=== PATIENT | female | born 1940 | race Caucasian/White ===

== ENCOUNTER 2018-02-22 07:53 | Emergency (ER) | payer MEDICARE, BC ==
[2018-02-22 07:58] VITALS: BP 132/83
--- NOTE | 2018-02-22 08:25 | EDM.PDOC ---
ED HPI GENERAL MEDICAL PROBLEM - General Chief Complaint: Respiratory Problem Stated Complaint: bronchitis, cough Time Seen by Provider: 02/22/18 08:20 Source of Information: Reports: Patient, Old Records ([facility] chart/EMR) History Limitations: Reports: No Limitations - History of Present Illness INITIAL COMMENTS - FREE TEXT/NARRATIVE: The patient was brought to the emergency room via private automobile by her for evaluation of progressive nonproductive cough with symptoms starting about one week ago. Note that she has had some intermittent fever and chills, nonspecific generalized myalgias, and progressive nonspecific generalized weakness, however has not measured her temperature. Her symptoms have been refractory to recent OTC cough medications and Mucinex DM. She denies any known exposure to infection with patient taking her regular Aleve for her arthritis earlier this morning. She has not been using any inhalers, etc. to this point with known history of COPD. She could not get an appointment with her regular provider for another couple of days. The patient denies any chest pain/pressure, heart flutter, dizziness, orthostasis, orthopnea, diaphoresis, paresthesias, recent decreased exercise tolerance, or any other anginal-type symptoms. No recent history of abdominal pain, heartburn, nausea, diarrhea, melena, gross hematochezia, or any food intolerance, including fatty foods, etc.. He denies any gross hematuria, colic, etc.. No current pain or discomfort other than 8/10 myalgias as above. Onset: Gradual Duration: Week(s): (As above), Constant, Getting Worse Location: Reports: Generalized Quality: Reports: Same as Previous Episode Severity: Moderate Improves with: Reports: None Worsens with: Reports: None Context: Reports: Other (As above). Denies: Sick Contact Associated Symptoms: Reports: Cough, Fever/Chills, Weakness. Denies: Confusion , Chest Pain, cough w sputum, Diaphoresis, Headaches, Loss of Appetite, Malaise , Nausea/Vomiting, Seizure, Shortness of Breath, Syncope Treatments AUTO BODY DETAILER: Reports: NSAIDS, Other Medication(s) Generalized Pain Score (Numeric/FACES): 8 - Related Data Allergies Allergy/AdvReac Type Severity Reaction Status Date / Time ciprofloxacin [From Cipro] Allergy Cannot Verified 02/22/18 07:58 Remember ciprofloxacin HCl Allergy Cannot Verified 02/22/18 07:58 [From Cipro] Remember nitrofurantoin Allergy Cannot Verified 02/22/18 07:58 [From Macrobid] Remember nitrofurantoin Allergy Cannot Verified 02/22/18 07:58 macrocrystalline Remember [From Macrobid] Sulfa (Sulfonamide Allergy Cannot Verified 02/22/18 07:58 Antibiotics) Remember Home Meds: Home Meds Citalopram [Celexa] 10 mg PO QAM 04/18/15 [History] LORazepam 0.5 mg PO BEDTIME PRN 04/18/15 [History] Metoprolol Succinate [Toprol XL] 50 mg PO QAM 04/18/15 [History] Triamcinolone Acetonide [Triamcinolone Acetonide 0.1% Crm] 15 gm TOP BID PRN [History] Losartan Potassium 100 mg PO QAM 10/04/15 [History] Cetirizine [ZyrTEC] 10 mg PO DAILY 02/13/16 [History] Aspirin [Ecotrin] 1 tab PO DAILY 07/18/16 [History] Albuterol/Ipratropium [DuoNeb 3.0-0.5 MG/3 ML] 3 ml NEB QID #60 neb 02/22/18 [Rx ] Amoxicillin/Potassium Clav [Augmentin 875-125 Tablet] 1 each PO BIDMEALS #20 tablet 02/22/18 [Rx] Furosemide [Lasix] 20 mg PO DAILY #14 tab 02/22/18 [Rx] Naproxen Sodium [Aleve] 220 mg PO DAILY 02/22/18 [History] Potassium Chloride 20 meq PO DAILY #14 tablet.er 02/22/18 [Rx] guaiFENesin/Dextromethorphan [Mucinex Dm ER 1,200-60 mg Tab] 1 each PO BID #20 tab.er.12h 02/22/18 [Rx] Past Medical History HEENT History: Reports: Allergic Rhinitis, Cataract, Impaired Vision, Sinusitis , Other (See Below). Denies: Glaucoma, Hard of Hearing, Macular Degeneration, Retinal Detachment Other HEENT History: Glasses, bilateral cataract surgery as below Cardiovascular History: Reports: Afib, Arrhythmia, CAD, Hypertension, IN, PTCA, Stents, Syncope, Other (See Below). Denies: Aneurysm, Blood Clots/VTE/DVT, Heart Failure, Heart Murmur, High Cholesterol, PVD Other Cardiovascular History: History of IN in 2007 which did require one stent as below. Cardiac ablation for atrial fibrillation at the [facility] on 02/05/16 , cardiomegaly, pectus excavatum, Respiratory History: Reports: Bronchitis, Recurrent, COPD, Intubation, Previous , Pneumonia, Recurrent, Pulmonary Fibrosis. Denies: Asthma, Intubation, Difficult, PE, Pneumothorax, Sleep Apnea, TB Gastrointestinal History: Reports: Cholelithiasis, Colon Polyp, Diverticulosis, Other (See Below). Denies: Celiac Disease, Chronic Constipation, Chronic Diarrhea, Fecal Incontinence, Gastritis, GERD, GI Bleed, Hepatitis, Hiatal Hernia, Inflammatory Bowel Disease, Irritable Bowel Syndrome, Jaundice, Pancreatitis, PUD Other Gastrointestinal History: Colonic polyps of unknown type. Diffuse diverticulosismoderate. Genitourinary History: Reports: Renal Calculus, UTI, Recurrent, Other (See Below ). Denies: Acute Renal Failure, Chronic Renal Insuffiency, Retention, Urinary, STD, Urinary Incontinence Other Genitourinary History: Chronic nonsymptomatic incidental right-sided urolithiasis and benign bilateral renal cysts by CT scan SURVEILLANCE SYSTEM MONITOR History: Reports: Fibroids, . Denies: Dysfunctional Uterine Bleeding, Endometriosis : 5 Para: 5 LMP (Approximate): Other (See Below) Other SURVEILLANCE SYSTEM MONITOR History: Menopause at age 48. Full term without complications during pregnancies or deliveries Musculoskeletal History: Reports: Arthritis, Back Pain, Chronic, Neck Pain, Chronic, Osteoarthritis, Osteoporosis, Other (See Below). Denies: Amputation, Fracture, Gout, RA, SLE Other Musculoskeletal History: Scoliosis Neurological History: Denies: Cerebral Aneurysms, Concussion, CVA, Headaches, Chronic, Head Trauma, Migraines, MS, Parkinson's, Seizure, TIA Psychiatric History: Reports: Anxiety, Depression. Denies: Abuse, Victim of, ADD, ADHD, Addiction, Psych Hospitalization(s), Psychosis, PTSD, Suicide Attempt , Suicidal Ideation Endocrine/Metabolic History: Reports: Osteopenia, Osteoporosis, Other (See Below ). Denies: Diabetes, Gestational, Diabetes, Type I, Diabetes, Type II, Diabetes Mellitus, Type 3c, Hypothyroidism, IDDM Other Endocrine/Metabolic History: Hyponatremia Hematologic History: Reports: None. Denies: Anemia, B12 Deficiency, Blood Transfusion(s), Iron Deficiency Immunologic History: Reports: None. Denies: AIDS, HIV, SLE Oncologic (Cancer) History: Reports: Malignant Melanoma, Other (See Below). Denies: Basal Cell Carcinoma, Breast, Cervix, Hodgkin's Lymphoma, Leukemia, Lymphoma, Non-Hodgkin's Lymphoma, Ovarian, Squamous Cell Carcinoma, Uterine Other Oncologic History: melanoma-left face in about 2002. Dermatologic History: Reports: Melanoma, Other (See Below). Denies: Eczema, Psoriasis Other Dermatologic History: Melanoma as above - Infectious Disease History Infectious Disease History: Reports: Measles. Denies: C-Difficile, Chicken Pox , Meningitis, Mononucleosis, MRSA, Mumps, Pertussis (Whooping Cough), Rheumatic Fever, Rubella, Scarlet Fever, Shingles, VRE - Past Surgical History Head Surgeries/Procedures: Reports: None HEENT Surgical History: Reports: Cataract Surgery, Other (See Below). Denies: Adenoidectomy, Eye Surgery, Laser Surgery, LASIK, Myringotomy w Tube(s), Naso- Sinus Surgery, Oral Surgery, Tonsillectomy Other HEENT Surgeries/Procedures: Bilateral cataract surgery in about 2014. Cardiovascular Surgical History: Reports: Cardiac Ablation, Carotid Stents, Other (See Below). Denies: Coronary Artery Bypass, Varicose Other Cardiovascular Surgeries/Procedures: Cardiac ablation on 02/05/16. PTCA/ stent 1 in 2006 which patient denies at this time? Respiratory Surgical History: Reports: None. Denies: Thoracentesis GI Surgical History: Reports: Cholecystectomy, Colonoscopy, EGD, Polypectomy, Other (See Below). Denies: Appendectomy, Hernia, Inguinal, Hernia Repair/Other Other GI Surgeries/Procedures: Laparoscopic Cholecystectomy at about age 58. Colonoscopy and EGD in about 2016 with possible polypectomy from the colon with previous colonoscopy on 02/10/07. Female Surgical History: Reports: None. Denies: Breast Biopsy, Section, Cystectomy, D&C, Hysterectomy, Salpingo-Oophorectomy, Tubal Ligation Endocrine Surgical History: Reports: None. Denies: Thyroid Biopsy Musculoskeletal Surgical History: Reports: Joint Replacement, Knee Replacement, Other (See Below). Denies: Arthroscopic Knee, Arthroscopic Procedure, Carpal Tunnel, Ganglion Cyst, ORIF, Shoulder Replacement, Shoulder Surgery Other Musculoskeletal Surgeries/Procedures:: Right total knee arthroplasty in about 2010. Right foot digit #1 joint replacement in about 2008. Oncologic Surgical History: Reports: None Dermatological Surgical History: Reports: Other (See Below) Other Dermatological Surgeries/Procedures: Excision of melanoma from the left facial region about 2002. - Past Imaging History Past Imaging History: Reports: Cardiac Echo (01/31/11 with ejection fraction of 63 %), Carotid US (Negative on 02/07/11), CAT Scan (CTA of the chest on 10/05/[address] scans of the abdomen and pelvis last on 04/19/15.), DEXA Scan (06/04/08), MRI (Pelvis on 04/15/08), PFT (03/27/11), Stress Testing (Low level cardiac stress test on 10/06/06.), Ultrasound (Abdominal ultrasound on . Pelvic ultrasound on 03/24/11.) - History Comment History Comment: hypokalemia and low sodium noted in past Social & Family History - Tobacco Use Smoking Status *Q: Former Smoker Tobacco Use Within Last Twelve Months: No Years of Tobacco use: 26 Packs/Tins Daily: 0.2 Used Tobacco, but Quit: Yes Month/Year Tobacco Last Used: Smoked about 1 pack per week and quit at age 43 Smoking Cessation Information Provided To Patient: No Second Hand Smoke Education Provided: No - Caffeine Use Caffeine Use: Reports: Coffee (4 cups per day). Denies: Energy Drinks, Soda, Tea - Alcohol Use Alcohol Use History: No Days Per Week of Alcohol Use: 0 Number of Drinks Per Day: 0 Number of Drinks Per Day Comment: No previous DWIs, problems with alcohol abuse , etc. 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 ED EXAM, GENERAL - Physical Exam Exam: See Below Exam Limited By: No Limitations General Appearance: Alert, WD/WN, No Apparent Distress Eye Exam: Bilateral Eye: EOMI, Normal Inspection (No nystagmus. Patient wearing glasses), PERRL Ears: Normal External Exam, Normal Canal, Hearing Grossly Normal, Normal TMs Nose: Normal Inspection, Normal Mucosa, No Blood Throat/Mouth: Normal Inspection, Normal Lips, Normal Teeth, Normal Gums, Normal Oropharynx, Normal Voice, No Airway Compromise. No: Dysphagia, Perioral Cyanosis Head: Atraumatic, Normocephalic. No: Facial Swelling, Facial Tenderness, Sinus Tenderness Neck: Normal Inspection, Supple, Non-Tender, Full Range of Motion. No: Carotid Bruit, Lymphadenopathy (L), Lymphadenopathy (R), Thyromegaly Respiratory/Chest: No Respiratory Distress, No Accessory Muscle Use, Chest Non- Tender, Rales (Mild bilateral basilar). No: Rhonchi, Wheezing, Pleural Rub, Retractions Cardiovascular: Normal Peripheral Pulses, Regular Rate, Rhythm, No Edema, No Gallop, No JVD, No Murmur, No Rub. No: Gallop/S3, Gallop/S4, Friction Rub Peripheral Pulses: 2+: Radial (L), Radial (R), Dorsalis Pedis (L), Dorsalis Pedis (R) GI/Abdominal: Normal Bowel Sounds, Soft, Non-Tender, No Organomegaly, No Distention, No Abnormal Bruit, No Mass, Pelvis Stable, Other (Obese). No: Guarding (Female) Exam: Deferred Rectal (Female) Exam: Deferred Back Exam: Normal Inspection, Full Range of Motion, Other (Mild scoliosis). No : CVA Tenderness (L), CVA Tenderness (R), Muscle Spasm Extremities: Normal Inspection, Normal Range of Motion, Non-Tender, No Pedal Edema, Normal Capillary Refill. No: Link's Sign Neurological: Alert, Oriented, CN II-XII Intact, Normal Cognition, Normal Gait, Normal Reflexes (Negative Babinski's), No Motor/Sensory Deficits Psychiatric: Normal Affect, Normal Mood Skin Exam: Warm, Dry, Intact, Normal Color, No Rash Lymphatic: No Adenopathy Course - Vital Signs Last Recorded V/S: Last Vital Signs Temp 36.8 C 02/22/18 07:54 Pulse 106 H 02/22/18 07:54 Resp 20 02/22/18 07:54 BP 132/83 02/22/18 07:54 Pulse Ox 94 L 02/22/18 07:54 Vital Signs - 24 hr 02/22/18 07:54 Temperature [ 36.8 C Oral] Pulse, 106 H Peripheral [ Left Pulse Oximetry] Respiratory 20 Rate Blood Pressure 132/83 [Left Upper Arm ] O2 Sat by Pulse 94 L Oximetry - Orders/Labs/Meds Orders: Active Orders 24 hr Category Date Time Status Communication Order [RC] ROUTINE Care 02/22/18 08:26 Active Peripheral IV Care [RC] . DIRECTED Care 02/22/18 08:27 Active Pulse Oximetry [RC] CONTINUOUS Care 02/22/18 08:26 Active Up With Assistance [RC] ASDIRECTED Care 02/22/18 08:26 Active Nothing Per Oral Diet [DIET] Diet 02/22/18 Breakfast Active Chest 2V [CR] Stat Exams 02/22/18 08:26 Taken CULTURE BLOOD [BC] Stat Lab 02/22/18 08:35 Received CULTURE BLOOD [BC] Stat Lab 02/22/18 09:20 Received CULTURE SPUTUM + SMEAR [RM] Urgent Lab 02/22/18 08:26 Ordered INFLUENZA A+B AG SCREEN [RM] Stat Lab 02/22/18 08:35 Ordered Sodium Chloride 0.9% [Saline Flush] Med 02/22/18 08:26 Active 10 ml FLUSH ASDIRECTED PRN Blood Culture x2 Reflex Set [OM.PC] Stat Oth 02/22/18 08:26 Ordered Obtain Past Medical Record [OM.PC] Stat Oth 02/22/18 08:26 Active Peripheral IV Insertion Adult [OM.PC] Stat Oth 02/22/18 08:26 Ordered Resuscitation Status Routine Resus Stat 02/22/18 08:26 Ordered Medication Orders Sodium Chloride (Saline Flush) 10 ml FLUSH ASDIRECTED PRN PRN Reason: Keep Vein Open Labs: Laboratory Tests 02/22/18 02/22/18 02/22/18 Range/Units 08:26 08:35 08:35 WBC 10.5 H (4.0-10.2) K/uL RBC 4.63 (3.77-5.09) M/uL Hgb 14.0 (11.7-15.5) g/dL Hct 40.9 (34.0-46.0) % MCV 88.3 (84.0-98.0) fL MCH 30.2 (28.2-33.3) pg MCHC 34.2 (31.7-36.0) g/dL RDW 12.1 (11.2-14.1) % Plt Count 175 (150-350) K/uL Neut % (Auto) 79.2 (45.0-80.0) % Lymph % (Auto) 9.7 L (10.0-50.0) % [place] % (Auto) 7.1 (2.0-14.0) % Eos % (Auto) 3.5 (0.0-5.0) % Baso % (Auto) 0.5 (0.0-2.0) % Neut # (Auto) 8.29 H (1.40-7.00) K/uL Lymph # (Auto) 1.02 (0.50-3.50) K/uL [place] # (Auto) 0.74 (0.00-1.00) K/uL Eos # (Auto) 0.37 (0.00-0.50) K/uL Baso # (Auto) 0.05 (0.00-0.20) K/uL Sodium 132 L (136-145) mmol/L Potassium 3.7 (3.5-5.1) mmol/L Chloride 94 L (98-107) mmol/L Carbon Dioxide 29.6 (21.0-32.0) mmol/L BUN 12 (7-18) mg/dL Creatinine 0.75 (0.51-1.17) mg/dL Est Cr Clr Drug Dosing 59.15 mL/min Estimated GFR (MDRD) > 60 mL/min Glucose 112 H (74-106) mg/dL Lactic Acid 0.6 (0.4-2.0) mmol/L Calcium 8.6 (8.5-10.1) mg/dL Magnesium 1.9 (1.8-2.4) mg/dL Total Bilirubin 0.8 (0.2-1.0) mg/dL AST 19 (15-37) U/L ALT 20 (12-78) U/L Alkaline Phosphatase 103 (46-116) IU/L Creatine Kinase 63 (26-308) U/L Creatine Kinase Index 1.4 (0.0-2.5) % CK-MB (CK-2) 0.90 (0.00-3.60) ng/mL Troponin I 0.000 (0.000-0.056) ng/mL NT-Pro-B Natriuret Pep 699 H (0-125) pg/mL Total Protein 7.4 (6.4-8.2) g/dL Albumin 3.2 L (3.4-5.0) g/dL TSH, Ultra Sensitive 2.295 (0.358-3.740) mIU/mL Blood cultures 2 were collected. Microbiology 02/22/18 08:35 Influenza Type A Antigen Screen - Final Nasal, Unspecified NEGATIVE INFLUENZA A VIRUS AG Influenza Type B Antigen Screen - Final NEGATIVE INFLUENZA B VIRUS AG Meds: Medications Generic Name Dose Route Start Last Admin Trade Name Freq PRN Reason Stop Dose Admin Sodium Chloride 10 ml 02/22/18 08:26 Saline Flush FLUSH ASDIRECTED PRN Keep Vein Open Discontinued Medications Generic Name Dose Route Start Last Admin Trade Name Freq PRN Reason Stop Dose Admin Albuterol/Ipratropium 3 ml 02/22/18 08:26 02/22/18 08:31 Duoneb 3.0-0.5 Mg/3 Ml NEB 02/22/18 08:27 3 ml ONETIME ONE Administration Budesonide 0.5 mg 02/22/18 08:26 02/22/18 08:33 Pulmicort NEB 02/22/18 08:27 0.5 mg ONETIME ONE Administration Ceftriaxone Sodium 1 gm 02/22/18 09:32 02/22/18 09:39 Rocephin IM 02/22/18 09:33 1 gm ONETIME ONE Administration Lidocaine HCl 5 ml 02/22/18 09:32 02/22/18 09:39 Xylocaine-Mpf 1% INJECT 02/22/18 09:33 5 ml ONETIME ONE Administration Methylprednisolone Acetate 80 mg 02/22/18 09:32 02/22/18 09:39 Depo-Medrol IM 02/22/18 09:33 80 mg ONETIME ONE Administration - Radiology Interpretation Free Text/Narrative:: Chest x-ray, PA and lateral, shows evidence of moderate diffuse COPD with probable mild pulmonary hypertension and/or centralized CHF. Mild prominence of the proximal aortic arch with no cardiomegaly, pneumothorax, or pulmonary infiltrates. Departure - Departure Time of Disposition: 10:05 Disposition: Home, Self-Care 01 Condition: Good Clinical Impression: Coronary artery disease, Hyponatremia, Osteoarthritis, Mixed anxiety depressive disorder, Atrial fibrillation, COPD (chronic obstructive pulmonary disease), CHF (congestive heart failure), Hypoalbuminemia - Discharge Information *PRESCRIPTION DRUG MONITORING PROGRAM REVIEWED*: No *COPY OF PRESCRIPTION DRUG MONITORING REPORT IN PATIENT MAYELA: No Prescriptions: Albuterol/Ipratropium [DuoNeb 3.0-0.5 MG/3 ML] 3 ml NEB QID #60 neb Amoxicillin/Potassium Clav [Augmentin 875-125 Tablet] 1 each PO BIDMEALS #20 tablet Furosemide [Lasix] 20 mg PO DAILY #14 tab guaiFENesin/Dextromethorphan [Mucinex Dm ER 1,200-60 mg Tab] 1 each PO BID #20 tab.er.12h Potassium Chloride 20 meq PO DAILY #14 tablet.er Instructions: Chronic Obstructive Pulmonary Disease, [id number], Acute Bronchitis, Adult, [id number], Heart Failure, Bnbe-il-[id number] Forms: ED Department Discharge Additional Instructions: 1. Followup with your regular provider in 7 days as directed for reevaluation and recommended repeat CBC, comprehensive panel, magnesium level, uric acid level, troponin I, CK, CK-MB,. Bring these discharge instructions with you to that visit. 2. Compliance with nebulizers treatment strongly encouraged 3. Discuss possible PFTs and/or echocardiogram with your regular provider once current infection has resolved 4. Immediately after this visit verify that your cellular telephone's voicemail has been activated and is empty. Also verify that your home telephone 's answering machine is operating properly and has space to receive messages. Note that it is sometimes necessary for us to be able to contact you at a later date to discuss your medical care. - Problem List & Annotations (1) Bronchitis SNOMED Code(s): 40471106 Code(s): J40 - BRONCHITIS, NOT SPECIFIED ACUTE OR CHRONIC Status: Acute Priority: High Onset Date: ~02/15/18 Annotation/Comment:: Various therapeutic options discussed with the patient, who wishes to treat this at home. IM Rocephin and IM Depo-Medrol given in the emergency room. She has not used her nebulizer or inhaler for about 20 years and not used her possible Symbicort disc for about 5 years. Continue Augmentin on an outpatient basis. (2) COPD (chronic obstructive pulmonary disease) SNOMED Code(s): 05789745 Code(s): J44.9 - CHRONIC OBSTRUCTIVE PULMONARY DISEASE, UNSPECIFIED Status : Chronic Priority: High Annotation/Comment:: Mild exacerbation secondary to her bronchitis. Triple nebulizer treatment given in the emergency room with overall good results. Reinitiate DuoNeb treatments at home with patient already having a nebulizer unit. Patient may benefit from when necessary additional inhaler therapy. IM Depo-Medrol also given in the emergency room. PFTs would be beneficial after resolution of current infection. Distant history of tobacco use. Qualifiers: COPD type: COPD with acute exacerbation Qualified Code(s): J44.1 - Chronic obstructive pulmonary disease with (acute) exacerbation (3) CHF (congestive heart failure) SNOMED Code(s): 83609477 Code(s): I50.9 - HEART FAILURE, UNSPECIFIED Status: Acute Priority: Medium Annotation/Comment:: Borderline CHF by clinical exam and chest x-ray with mildly elevated BNP and otherwise normal cardiac enzymes. No chest pain or anginal complaints as below. Diuretic changed to low-dose oral Lasix with close follow-up by her regular provider, including possible echocardiogram in the near future. Qualifiers: Heart failure type: unspecified Heart failure chronicity: unspecified Qualified Code(s): I50.9 - Heart failure, unspecified (4) Coronary artery disease SNOMED Code(s): 17078850 Code(s): I25.10 - ATHSCL HEART DISEASE OF [place] CORONARY ARTERY W/O ANG PCTRS Status: Chronic Priority: Medium Annotation/Comment:: As above Qualifiers: Coronary Disease-Associated Artery/Lesion type: [place] artery [place] vs. transplanted heart: [place] heart Associated angina: without angina Qualified Code(s): I25.10 - Atherosclerotic heart disease of [place] coronary artery without angina pectoris (5) Osteoarthritis SNOMED Code(s): 493017368 Code(s): M19.90 - UNSPECIFIED OSTEOARTHRITIS, UNSPECIFIED SITE Status: Chronic Priority: Medium Annotation/Comment:: Stable by history with only nonspecific arthralgias and myalgias at this time secondary to current infection. Qualifiers: Osteoarthritis location: multiple joints Osteoarthritis type: primary Qualified Code(s): M15.0 - Primary generalized (osteo)arthritis (6) Atrial fibrillation SNOMED Code(s): 03744136 Code(s): I48.91 - UNSPECIFIED ATRIAL FIBRILLATION Status: Chronic Priority: Medium Annotation/Comment:: Note previous cardiac ablation on with no current anticoagulation therapy. No chest pain or anginal type symptoms. Normal sinus rhythm at this time. Continue close followup by her director account management and regular provider. Qualifiers: Atrial fibrillation type: unspecified Qualified Code(s): I48.91 - Unspecified atrial fibrillation (7) Hyponatremia SNOMED Code(s): 08766449 Code(s): E87.1 - HYPO-OSMOLALITY AND HYPONATREMIA Status: Chronic Priority: Medium Annotation/Comment:: Mild hyponatremia likely secondary to her CHF. Close follow-up by regular provider as per discharge instructions. (8) Mixed anxiety depressive disorder SNOMED Code(s): 887252307 Code(s): F41.8 - OTHER SPECIFIED ANXIETY DISORDERS Status: Chronic Priority: Medium Annotation/Comment:: Stable by history (9) Hypoalbuminemia SNOMED Code(s): 498404162 Code(s): E88.09 - [facility] DISORDERS OF PLASMA-PROTEIN METABOLISM, NEC Status: Acute Priority: Medium Onset Date: 02/22/18 Annotation/Comment:: Observe for now. Consider high protein Glucerna supplements as snacks, if hyponatremia persists at follow-up. - Problem List Review Problem List Initiated/Reviewed/Updated: Yes - My Orders Last 24 Hours: My Active Orders 02/22/18 08:26 Communication Order [RC] ROUTINE Pulse Oximetry [RC] CONTINUOUS Up With Assistance [RC] ASDIRECTED Chest 2V [CR] Stat CULTURE SPUTUM + SMEAR [RM] Urgent Sodium Chloride 0.9% [Saline Flush] 10 ml FLUSH ASDIRECTED PRN Blood Culture x2 Reflex Set [OM.PC] Stat Obtain Past Medical Record [OM.PC] Stat Peripheral IV Insertion Adult [OM.PC] Stat Resuscitation Status Routine 02/22/18 08:27 Peripheral IV Care [RC] . DIRECTED 02/22/18 08:35 CULTURE BLOOD [BC] Stat INFLUENZA A+B AG SCREEN [RM] Stat 02/22/18 09:20 CULTURE BLOOD [BC] Stat 02/22/18 Breakfast Nothing Per Oral Diet [DIET] - Assessment/Plan Last 24 Hours: My Active Orders 02/22/18 08:26 Communication Order [RC] ROUTINE Pulse Oximetry [RC] CONTINUOUS Up With Assistance [RC] ASDIRECTED Chest 2V [CR] Stat CULTURE SPUTUM + SMEAR [RM] Urgent Sodium Chloride 0.9% [Saline Flush] 10 ml FLUSH ASDIRECTED PRN Blood Culture x2 Reflex Set [OM.PC] Stat Obtain Past Medical Record [OM.PC] Stat Peripheral IV Insertion Adult [OM.PC] Stat Resuscitation Status Routine 02/22/18 08:27 Peripheral IV Care [RC] . DIRECTED 02/22/18 08:35 CULTURE BLOOD [BC] Stat INFLUENZA A+B AG SCREEN [RM] Stat 02/22/18 09:20 CULTURE BLOOD [BC] Stat 02/22/18 Breakfast Nothing Per Oral Diet [DIET] Assessment:: As above Plan: As above. Extensive precautions were given to the patient, who is in agreement with the treatment plan. See Patient Instructions for further treatment and plan.
[2018-02-22] MEDS ORDERED: Albuterol/Ipratropium 3.0-0.5 MG/3 ML Neb Soln NEB ONE (08:26)
[2018-02-22] MEDS ORDERED: Budesonide 0.5 MG/2 ML Neb Susp NEB ONE (08:26)
[2018-02-22] MEDS ORDERED: Sodium Chloride 0.9% 10 ML Syringe FLUSH PRN (08:26)
[2018-02-22 09:14] LABS: CHLORIDE,CL 94 mmol/L (98-107); SODIUM,NA 132 mmol/L (136-145)
[2018-02-22] MEDS ORDERED: cefTRIAXone 1 GM Vial IM ONE (09:32)
[2018-02-22] MEDS ORDERED: methylPREDNISolone Acetate 80 MG/ML SDV IM ONE (09:32)
== END 2018-02-22 10:03 | disposition home or self-care (01) ==
LOC: LL.ED 07:53
DX: J44.9 Chronic obstructive pulmonary disease, unspecified (principal); I11.0 Hypertensive heart disease with heart failure; I50.9 Heart failure, unspecified; I25.10 Atherosclerotic heart disease of native coronary artery without angina pectoris; F41.8 Other specified anxiety disorders; M15.0 Primary generalized (osteo)arthritis; M19.90 Unspecified osteoarthritis, unspecified site; I48.91 Unspecified atrial fibrillation; E88.09 Other disorders of plasma-protein metabolism, not elsewhere classified; I25.2 Old myocardial infarction; Z87.891 Personal history of nicotine dependence; Z88.1 Allergy status to other antibiotic agents; Z88.2 Allergy status to sulfonamides; Z79.899 Other long term (current) drug therapy; Z79.82 Long term (current) use of aspirin
CPT/HCPCS: 36415; 71046; 80053; 82550; 82553; 83605; 83735; 83880; 84443; 84484; 85025; 87040; 87804; 99284; J0696; J1040

== ENCOUNTER 2019-07-17 16:53 | Observation (INO) | payer MEDICARE, BC ==
[2019-07-17 17:24] LABS: CHLORIDE,CL 101 mmol/L (98-107); SODIUM,NA 138 mmol/L (136-145)
[2019-07-17] MEDS ORDERED: Ketorolac 10 MG Tab PO ONE (18:28)
[2019-07-17] MEDS ORDERED: Ondansetron 4 MG Tab.DIS PO ONE (18:28)
[2019-07-17] MEDS ORDERED: Tamsulosin 0.4 MG Cap.ER PO ONE (18:59)
--- NOTE | 2019-07-17 19:07 | EDM.PDOC ---
ED HPI GENERAL MEDICAL PROBLEM - General Chief Complaint: Genitourinary Problem Stated Complaint: chills, right flank pain, N/V Time Seen by Provider: 07/17/19 17:02 Source of Information: Reports: Patient History Limitations: Reports: No Limitations - History of Present Illness INITIAL COMMENTS - FREE TEXT/NARRATIVE: Patient comes to ER with complaint of nausea/emesis/right sided flank pain that started today. Previous history of kidney stone "60 years ago". No hematuria but reports long standing issues with urinary urgency. No fevers/ chills. Did have a few loose stools today but that is not unusual for the patient. 3 episodes of emesis. Pain does not radiate. Decreased appetite. No other acute changes reported during ROS. Does report decreased hearing in right hear/feeling plugged "for months" - Related Data Allergies Allergy/AdvReac Type Severity Reaction Status Date / Time ciprofloxacin [From Cipro] Allergy Cannot Verified 02/22/18 07:58 Remember ciprofloxacin HCl Allergy Cannot Verified 02/22/18 07:58 [From Cipro] Remember nitrofurantoin Allergy Cannot Verified 02/22/18 07:58 [From Macrobid] Remember nitrofurantoin Allergy Cannot Verified 02/22/18 07:58 macrocrystalline Remember [From Macrobid] Sulfa (Sulfonamide Allergy Cannot Verified 02/22/18 07:58 Antibiotics) Remember Home Meds: Home Meds Citalopram [Celexa] 10 mg PO QAM 04/18/15 [History] LORazepam 0.5 mg PO BEDTIME PRN 04/18/15 [History] Metoprolol Succinate [Toprol XL] 50 mg PO QAM 04/18/15 [History] Triamcinolone Acetonide [Triamcinolone Acetonide 0.1% Crm] 15 gm TOP BID PRN [History] Losartan Potassium 100 mg PO QAM 10/04/15 [History] Cetirizine [ZyrTEC] 10 mg PO DAILY 02/13/16 [History] Aspirin [Ecotrin] 1 tab PO DAILY 07/18/16 [History] Albuterol/Ipratropium [DuoNeb 3.0-0.5 MG/3 ML] 3 ml NEB QID #60 neb 02/22/18 [Rx ] Amoxicillin/Potassium Clav [Augmentin 875-125 Tablet] 1 each PO BIDMEALS #20 tablet 02/22/18 [Rx] Furosemide [Lasix] 20 mg PO DAILY #14 tab 02/22/18 [Rx] Naproxen Sodium [Aleve] 220 mg PO DAILY 02/22/18 [History] Potassium Chloride 20 meq PO BID #30 tablet.er 02/22/18 [Rx] Potassium Chloride 20 meq PO DAILY #14 tablet.er 02/22/18 [Rx] guaiFENesin/Dextromethorphan [Mucinex Dm ER 1,200-60 mg Tab] 1 each PO BID #20 tab.er.12h 02/22/18 [Rx] Past Medical History HEENT History: Reports: Allergic Rhinitis, Cataract, Impaired Vision, Sinusitis , Other (See Below). Denies: Glaucoma, Hard of Hearing, Macular Degeneration, Retinal Detachment Other HEENT History: Glasses, bilateral cataract surgery as below Cardiovascular History: Reports: Afib, Arrhythmia, CAD, Hypertension, [place], PTCA, Stents, Syncope, Other (See Below). Denies: Aneurysm, Blood Clots/VTE/DVT, Heart Failure, Heart Murmur, High Cholesterol, PVD Other Cardiovascular History: History of [place] in 2006 which did require one stent as below. Cardiac ablation for atrial fibrillation at the [facility] on 02/05/16 , cardiomegaly, pectus excavatum, Respiratory History: Reports: Bronchitis, Recurrent, COPD, Intubation, Previous , Pneumonia, Recurrent, Pulmonary Fibrosis. Denies: Asthma, Intubation, Difficult, PE, Pneumothorax, Sleep Apnea, TB Gastrointestinal History: Reports: Cholelithiasis, Colon Polyp, Diverticulosis, Other (See Below). Denies: Celiac Disease, Chronic Constipation, Chronic Diarrhea, Fecal Incontinence, Gastritis, GERD, GI Bleed, Hepatitis, Hiatal Hernia, Inflammatory Bowel Disease, Irritable Bowel Syndrome, Jaundice, Pancreatitis, PUD Other Gastrointestinal History: Colonic polyps of unknown type. Diffuse diverticulosismoderate. Genitourinary History: Reports: Renal Calculus, UTI, Recurrent, Other (See Below ). Denies: Acute Renal Failure, Chronic Renal Insuffiency, Retention, Urinary, STD, Urinary Incontinence Other Genitourinary History: Chronic nonsymptomatic incidental right-sided urolithiasis and benign bilateral renal cysts by CT scan [employer] History: Reports: Fibroids, . Denies: Dysfunctional Uterine Bleeding, Endometriosis Other [employer]ATOR History: Menopause at age 48. Full term without complications during pregnancies or deliveries Musculoskeletal History: Reports: Arthritis, Back Pain, Chronic, Neck Pain, Chronic, Osteoarthritis, Osteoporosis, Other (See Below). Denies: Amputation, Fracture, Gout, RA, SLE Other Musculoskeletal History: Scoliosis Psychiatric History: Reports: Anxiety, Depression. Denies: Abuse, Victim of, ADD, ADHD, Addiction, Psych Hospitalization(s), Psychosis, PTSD, Suicide Attempt , Suicidal Ideation Endocrine/Metabolic History: Reports: Osteopenia, Osteoporosis, Other (See Below ). Denies: Diabetes, Gestational, Diabetes, Type I, Diabetes, Type II, Diabetes Mellitus, Type 3c, Hypothyroidism, IDDM Other Endocrine/Metabolic History: Hyponatremia Hematologic History: Reports: None. Denies: Anemia, B12 Deficiency, Blood Transfusion(s), Iron Deficiency Immunologic History: Reports: None. Denies: AIDS, HIV, SLE Oncologic (Cancer) History: Reports: Malignant Melanoma, Other (See Below). Denies: Basal Cell Carcinoma, Breast, Cervix, Hodgkin's Lymphoma, Leukemia, Lymphoma, Non-Hodgkin's Lymphoma, Ovarian, Squamous Cell Carcinoma, Uterine Other Oncologic History: melanoma-left face in about 2002. Dermatologic History: Reports: Melanoma, Other (See Below). Denies: Eczema, Psoriasis Other Dermatologic History: Melanoma as above - Infectious Disease History Infectious Disease History: Reports: Measles. Denies: C-Difficile, Chicken Pox , Meningitis, Mononucleosis, MRSA, Mumps, Pertussis (Whooping Cough), Rheumatic Fever, Rubella, Scarlet Fever, Shingles, VRE - Past Surgical History Head Surgeries/Procedures: Reports: None HEENT Surgical History: Reports: Cataract Surgery, Other (See Below). Denies: Adenoidectomy, Eye Surgery, Laser Surgery, LASIK, Myringotomy w Tube(s), Naso- Sinus Surgery, Oral Surgery, Tonsillectomy Other HEENT Surgeries/Procedures: Bilateral cataract surgery in about 2014. Cardiovascular Surgical History: Reports: Cardiac Ablation, Carotid Stents, Other (See Below). Denies: Coronary Artery Bypass, Varicose Other Cardiovascular Surgeries/Procedures: Cardiac ablation on 02/05/16. PTCA/ stent 1 in 2006 which patient denies at this time? Respiratory Surgical History: Reports: None. Denies: Thoracentesis GI Surgical History: Reports: Cholecystectomy, Colonoscopy, EGD, Polypectomy, Other (See Below). Denies: Appendectomy, Hernia, Inguinal, Hernia Repair/Other Other GI Surgeries/Procedures: Laparoscopic Cholecystectomy at about age 58. Colonoscopy and EGD in about 2016 with possible polypectomy from the colon with previous colonoscopy on 02/10/07. Female Surgical History: Reports: None. Denies: Breast Biopsy, Section, Cystectomy, D&C, Hysterectomy, Salpingo-Oophorectomy, Tubal Ligation Endocrine Surgical History: Reports: None. Denies: Thyroid Biopsy Musculoskeletal Surgical History: Reports: Joint Replacement, Knee Replacement, Other (See Below). Denies: Arthroscopic Knee, Arthroscopic Procedure, Carpal Tunnel, Ganglion Cyst, ORIF, Shoulder Replacement, Shoulder Surgery Other Musculoskeletal Surgeries/Procedures:: Right total knee arthroplasty in about 2010. Right foot digit #1 joint replacement in about 2008. Oncologic Surgical History: Reports: None Dermatological Surgical History: Reports: Other (See Below) Other Dermatological Surgeries/Procedures: Excision of melanoma from the left facial region about 2002. - Past Imaging History Past Imaging History: Reports: Cardiac Echo (01/31/11 with ejection fraction of 63 %), Carotid US (Negative on 02/07/11), CAT Scan (CTA of the chest on 10/05/[address] scans of the abdomen and pelvis last on 04/19/15.), DEXA Scan (06/04/08), MRI (Pelvis on 04/15/08), PFT (03/27/11), Stress Testing (Low level cardiac stress test on 10/06/06.), Ultrasound (Abdominal ultrasound on . Pelvic ultrasound on 03/24/11.) - History Comment History Comment: hypokalemia and low sodium noted in past Social & Family History - Caffeine Use Caffeine Use: Reports: Coffee (4 cups per day). Denies: Energy Drinks, Soda, Tea - Living Situation & Occupation Living situation: Reports: (1960, 5 children), with Family () Occupation: Employed ([employer]) ED ROS GENERAL - Review of Systems Review Of Systems: Comprehensive ROS is negative, except as noted in HPI. ED EXAM, GENERAL - Physical Exam Exam: See Below Exam Limited By: No Limitations General Appearance: Alert, WD/WN, No Apparent Distress Eye Exam: Bilateral Eye: EOMI, PERRL Ears: Normal External Exam, Normal Canal, Hearing Grossly Normal, Normal TMs Nose: No: Nasal Deformity, Nasal Swelling, Nasal Drainage Throat/Mouth: Normal Lips, Normal Voice, No Airway Compromise Head: Atraumatic, Normocephalic Neck: Supple, Non-Tender, Full Range of Motion Respiratory/Chest: No Respiratory Distress, No Accessory Muscle Use, Chest Non- Tender, Rales (faint/at bases posteriorly) Cardiovascular: Regular Rate, Rhythm, No Murmur GI/Abdominal: Soft, No Distention, Tender (mild tenderness right side of abdomen ), Abnormal Bowel Sounds (decreased throughout). No: Guarding, Rigid, Rebound (Female) Exam: Deferred Rectal (Female) Exam: Deferred Extremities: Non-Tender, Normal Capillary Refill Neurological: Alert, Oriented, Normal Cognition, No Motor/Sensory Deficits Psychiatric: Normal Affect, Normal Mood Skin Exam: Warm, Dry, Normal Color Course - Orders/Labs/Meds Orders: Active Orders 24 hr Category Date Time Status Abdomen Pelvis wo Cont [CT] Stat Exams 07/17/19 17:30 Ordered Labs: Laboratory Tests 07/17/19 07/17/19 07/17/19 Range/Units 17:00 17:05 17:05 WBC 12.7 H (4.0-10.2) K/uL RBC 4.36 (3.77-5.09) M/uL Hgb 13.0 (11.7-15.5) g/dL Hct 39.8 (34.0-46.0) % MCV 91.3 (84.0-98.0) fL MCH 29.8 (28.2-33.3) pg MCHC 32.7 (31.7-36.0) g/dL RDW 13.0 (11.2-14.1) % Plt Count 120 L (150-350) K/uL Neut % (Auto) 94.5 H (45.0-80.0) % Lymph % (Auto) 3.1 L (10.0-50.0) % [place] % (Auto) 1.6 L (2.0-14.0) % Eos % (Auto) 0.5 (0.0-5.0) % Baso % (Auto) 0.3 (0.0-2.0) % Neut # (Auto) 12.02 H (1.40-7.00) K/uL Lymph # (Auto) 0.40 L (0.50-3.50) K/uL [place] # (Auto) 0.20 (0.00-1.00) K/uL Eos # (Auto) 0.06 (0.00-0.50) K/uL Baso # (Auto) 0.04 (0.00-0.20) K/uL Sodium 138 (136-145) mmol/L Potassium 3.8 (3.5-5.1) mmol/L Chloride 101 (98-107) mmol/L Carbon Dioxide 30.8 (21.0-32.0) mmol/L BUN 19 H (7-18) mg/dL Creatinine 1.00 (0.51-1.17) mg/dL Est Cr Clr Drug Dosing TNP Estimated GFR (MDRD) 53 mL/min Glucose 142 H (74-106) mg/dL Calcium 8.7 (8.5-10.1) mg/dL Total Bilirubin 0.7 (0.2-1.0) mg/dL AST 22 (15-37) U/L ALT 19 (12-78) U/L Alkaline Phosphatase 96 (46-116) IU/L Total Protein 7.1 (6.4-8.2) g/dL Albumin 3.5 (3.4-5.0) g/dL Specimen Type Urincc Urine Color Yellow Urine Appearance Clear Urine pH 7.5 (5.0-9.0) Ur Specific [place] 1.020 (1.005-1.030) Urine Protein Negative (NEGATIVE) mg/dL Urine Glucose (UA) Negative (NEGATIVE) mg/dL Urine Ketones Negative (NEGATIVE) mg/dL Urine Occult Blood Large H (NEGATIVE) Urine Nitrite Negative (NEGATIVE) Urine Bilirubin Negative (NEGATIVE) Urine Urobilinogen 0.2 (0.2-1.0) E.U./dL Ur Leukocyte Esterase Negative (NEGATIVE) Urine RBC 10-20 H /HPF Urine WBC 0-5 /HPF Ur Epithelial Cells Few /LPF Urine Bacteria Few (NONE TO FEW) /HPF Meds: Medications Discontinued Medications Generic Name Dose Route Start Last Admin Trade Name Freq PRN Reason Stop Dose Admin Ketorolac Tromethamine 10 mg 07/17/19 18:28 Toradol PO 07/17/19 18:29 ONETIME ONE Ondansetron HCl 4 mg 07/17/19 18:28 Zofran Odt PO 07/17/19 18:29 ONETIME ONE - Radiology Interpretation CT Results Date: 07/17/19 CT Results Time: 18:35 (4mm stone on right near UVJ. Some hydronephrosis and stranding right kidney) - Re-Assessments/Exams Free Text/Narrative Re-Assessment/Exam: Mild elevation in WBC. Mild hematuria UA. No increase in WBCs. CT obtained to r/o kidney stone and 4mm stone identified near UVJ. Patient admitted obs for pain control and IV fluid. Departure - Departure Time of Disposition: 18:58 Disposition: Refer to Observation Condition: Good Clinical Impression: Kidney stone on right side - Discharge Information *PRESCRIPTION DRUG MONITORING PROGRAM REVIEWED*: Not Applicable *COPY OF PRESCRIPTION DRUG MONITORING REPORT IN PATIENT MAYELA: Not Applicable Referrals: Lisseth Boggs, [employer] [Primary Care Provider] - - Problem List & Annotations (1) Kidney stone on right side SNOMED Code(s): 59429378 Code(s): N20.0 - CALCULUS OF KIDNEY Status: Acute Priority: High Onset Date: ~07/17/19 Annotation/Comment:: 4mm stone right UVJ area. Will give IV fluid/Flomax to help patient pass stone. Also nausea meds/pain meds as needed. (2) Coronary artery disease SNOMED Code(s): 38490448 Code(s): I25.10 - ATHSCL HEART DISEASE OF [place] CORONARY ARTERY W/O ANG PCTRS Status: Chronic Priority: Low Annotation/Comment:: Currently appears to be stable Qualifiers: Coronary Disease-Associated Artery/Lesion type: [place] artery [place] vs. transplanted heart: [place] heart Associated angina: without angina Qualified Code(s): I25.10 - Atherosclerotic heart disease of [place] coronary artery without angina pectoris (3) Osteoarthritis SNOMED Code(s): 621106342 Code(s): M19.90 - UNSPECIFIED OSTEOARTHRITIS, UNSPECIFIED SITE Status: Chronic Priority: Low Annotation/Comment:: Currently appears to be stable Qualifiers: Osteoarthritis location: multiple joints Osteoarthritis type: primary Qualified Code(s): M15.0 - Primary generalized (osteo)arthritis (4) Mixed anxiety depressive disorder SNOMED Code(s): 273269752 Code(s): F41.8 - OTHER SPECIFIED ANXIETY DISORDERS Status: Chronic Priority: Low Annotation/Comment:: Stable by history (5) COPD (chronic obstructive pulmonary disease) SNOMED Code(s): 29120152 Code(s): J44.9 - CHRONIC OBSTRUCTIVE PULMONARY DISEASE, UNSPECIFIED Status : Chronic Priority: Low Annotation/Comment:: Currently appears to be stable Qualifiers: COPD type: COPD with acute exacerbation Qualified Code(s): J44.1 - Chronic obstructive pulmonary disease with (acute) exacerbation (6) CHF (congestive heart failure) SNOMED Code(s): 66755460 Code(s): I50.9 - HEART FAILURE, UNSPECIFIED Status: Chronic Priority: Low Annotation/Comment:: Currently appears to be stable Qualifiers: Heart failure type: unspecified Heart failure chronicity: unspecified Qualified Code(s): I50.9 - Heart failure, unspecified - Problem List Review Problem List Initiated/Reviewed/Updated: Yes - My Orders Last 24 Hours: My Active Orders 07/17/19 17:30 Abdomen Pelvis wo Cont [CT] Stat - Assessment/Plan Admission H&P: Please use this note as an admission H&P Last 24 Hours: My Active Orders 07/17/19 17:30 Abdomen Pelvis wo Cont [CT] Stat Assessment:: as above. Stable and suitable for general supervision. Plan: as above. Anticipate 1-2 day stay depending on clinic course/ability to pass stone.
[2019-07-17] MEDS ORDERED: Sodium Chloride 0.9% 10 ML Syringe FLUSH PRN (19:25)
[2019-07-17] MEDS ORDERED: oxyCODONE 5 MG Tab PO PRN (19:25)
[2019-07-17] MEDS ORDERED: Ondansetron 4 MG/2 ML SDV IVPUSH PRN (19:25)
[2019-07-17] MEDS ORDERED: Ketorolac 15 MG/ML SDV IVPUSH PRN (19:33)
[2019-07-17] MEDS ORDERED: Sodium Chloride 0.9% 250 ML IV ONE (20:00)
[2019-07-17] MEDS ORDERED: Sodium Chloride 0.9% 500 ML IV ONE (22:00)
[2019-07-18] MEDS: Acetaminophen 325 MG Tab PO PRN ×2 (02:25→08:07)
[2019-07-18] MEDS ORDERED: Tamsulosin 0.4 MG Cap.ER PO SCH (08:30)
--- NOTE | 2019-07-18 11:40 | PCM.DCSUM1 ---
Discharge Summary - Hospital Course Brief History: Admitted for treatment of kidney stone/pain relief Diagnosis: Stroke: No - Discharge Data Discharge Date: 07/18/19 Discharge Disposition: Home, Self-Care 01 Condition: Good - Referral to Home Health Primary Care Physician: Lisseth Boggs NP - Discharge Diagnosis/Problem(s) (1) Kidney stone on right side SNOMED Code(s): 94247393 ICD Code: N20.0 - CALCULUS OF KIDNEY Status: Acute Priority: High Current Visit: No Onset Date: ~07/17/19 Problem Details: 4mm stone right UVJ passed overnight. Flank pain resolved. (2) Coronary artery disease SNOMED Code(s): 16782009 ICD Code: I25.10 - ATHSCL HEART DISEASE OF [place] CORONARY ARTERY W/O ANG PCTRS Status: Chronic Priority: Low Current Visit: No Problem Details: Currently appears to be stable Qualifiers: Coronary Disease-Associated Artery/Lesion type: [place] artery [place] vs. transplanted heart: [place] heart Associated angina: without angina Qualified Code(s): I25.10 - Atherosclerotic heart disease of [place] coronary artery without angina pectoris (3) Osteoarthritis SNOMED Code(s): 464933445 ICD Code: M19.90 - UNSPECIFIED OSTEOARTHRITIS, UNSPECIFIED SITE Status: Chronic Priority: Low Current Visit: No Problem Details: Currently appears to be stable Qualifiers: Osteoarthritis location: multiple joints Osteoarthritis type: primary Qualified Code(s): M15.0 - Primary generalized (osteo)arthritis (4) Mixed anxiety depressive disorder SNOMED Code(s): 610846566 ICD Code: F41.8 - OTHER SPECIFIED ANXIETY DISORDERS Status: Chronic Priority: Low Current Visit: No Problem Details: Stable by history (5) COPD (chronic obstructive pulmonary disease) SNOMED Code(s): 90614281 ICD Code: J44.9 - CHRONIC OBSTRUCTIVE PULMONARY DISEASE, UNSPECIFIED Status : Chronic Priority: Low Current Visit: No Problem Details: Currently appears to be stable Qualifiers: COPD type: COPD with acute exacerbation Qualified Code(s): J44.1 - Chronic obstructive pulmonary disease with (acute) exacerbation (6) CHF (congestive heart failure) SNOMED Code(s): 58407400 ICD Code: I50.9 - HEART FAILURE, UNSPECIFIED Status: Chronic Priority: Low Current Visit: No Problem Details: Currently appears to be stable Qualifiers: Heart failure type: unspecified Heart failure chronicity: unspecified Qualified Code(s): I50.9 - Heart failure, unspecified (7) Irritable bowel syndrome (IBS) SNOMED Code(s): 51056713 ICD Code: K58.9 - IRRITABLE BOWEL SYNDROME WITHOUT DIARRHEA Status: Chronic Priority: Low Current Visit: Yes Problem Details: Patient reports long standing issues with intermittent loose stools/abdominal discomfort. No specific diagnosis made in regards to this but suggestive of IBS pattern. Recommend elimination diet that first targets gluten, and then to also try a 3- 4 week period of elimination dairy. To follow up as needed and consider further dietary targets as needed. Qualifiers: Irritable bowel syndrome type: unspecified Qualified Code(s): K58.9 - Irritable bowel syndrome without diarrhea - Patient Summary/Data Hospital Course: Patient admitted. Given IV fluids/pain medication/Flomax. Passed small stone overnight. Flank pain resolved. Has mild headache this morning but says she feels like she may be coming down with viral illness for last few days. No other changes reported by patient other than feeling fatigued. Has her usual abdominal discomfort which is unchanged. Elimination diet recommended. To follow up with primary provider and review if colonoscopy needs to be updated and referral to GI as needed. - Patient Instructions Diet: Usual Diet as Tolerated (recommend trial of wheat/grain free for 3-4 weeks , followed by dairy free for 3-4 weeks. ) Activity: As Tolerated Driving: Do Not Drive Showering/Bathing: May Shower Other/Special Instructions: Elimination diet as discussed. See if that helps your chronic issues with abdominal discomfort/intermittent loose stools. Follow up with your primary provider and see if you are due for a colonscopy. You may benefit from referral to GI if problems worsen. Rest today and follow up as needed if you have worsening problems. - Discharge Plan *PRESCRIPTION DRUG MONITORING PROGRAM REVIEWED*: Not Applicable *COPY OF PRESCRIPTION DRUG MONITORING REPORT IN PATIENT MAYELA: Not Applicable Prescriptions/Med Rec: Fouzia/Cell/Lipas/Malt/Prt/Lac/in [Digestive Enzymes] 1 each PO ASDIRECTED #90 capsule Home Medications: Home Meds Citalopram [Celexa] 10 mg PO QAM 04/18/15 [History] LORazepam 0.5 mg PO BEDTIME PRN 04/18/15 [History] Metoprolol Succinate [Toprol XL] 50 mg PO QAM 04/18/15 [History] Triamcinolone Acetonide [Triamcinolone Acetonide 0.1% Crm] 15 gm TOP BID PRN [History] Losartan Potassium 100 mg PO QAM 10/04/15 [History] Cetirizine [ZyrTEC] 10 mg PO DAILY 02/13/16 [History] Aspirin [Ecotrin] 1 tab PO DAILY 07/18/16 [History] Furosemide [Lasix] 20 mg PO DAILY #14 tab 02/22/18 [Rx] Naproxen Sodium [Aleve] 220 mg PO DAILY 02/22/18 [History] guaiFENesin/Dextromethorphan [Mucinex DM ER 1,200-60 MG] 1 each PO DAILY [History] Fouzia/Cell/Lipas/Malt/Prt/Lac/in [Digestive Enzymes] 1 each PO ASDIRECTED #90 capsule 07/18/19 [Rx] Patient Handouts: Tamsulosin capsules Forms: ED Department Discharge Referrals: Lisseth Boggs NP [Primary Care Provider] - - Discharge Summary/Plan Comment DC Time >30 min.: No - General Info Date of Service: 07/18/19 Admission Dx/Problem (Free Text: Kidney stone Subjective Update: Flank pain resolved. Mild headache. Feels tired. No other acute changes. Would like to go home. Functional Status: Reports: Pain Controlled (had Tylenol for headache), Tolerating Diet, Ambulating, Urinating - Review of Systems General: Reports: Fatigue. Denies: Fever, Malaise, Chills, Night Sweats HEENT: Reports: Headaches. Denies: Sinus Congestion, Sore Throat, Rhinitis, Visual Changes Pulmonary: Reports: No Symptoms. Denies: Cough Cardiovascular: Reports: No Symptoms. Denies: Chest Pain Gastrointestinal: Reports: Abdominal Pain (chronic/unchanged). Denies: Constipation, Diarrhea, Nausea, Vomiting Genitourinary: Reports: No Symptoms Musculoskeletal: Reports: No Symptoms (no acute changes from baseline) Skin: Reports: No Symptoms Neurological: Reports: Headache. Denies: Confusion, Dizziness, Numbness, Paresthesia, Difficulty Walking, Change in Speech Psychiatric: Reports: No Symptoms - Patient Data Vitals - Most Recent: Last Vital Signs Temp 36.7 C 07/18/19 07:51 Pulse 87 07/18/19 07:51 Resp 16 07/18/19 07:51 BP 132/60 07/18/19 07:51 Pulse Ox 93 L 07/18/19 07:51 Weight - Most Recent: 82.554 kg I&O - Last 24 hours: Intake & Output 07/17/19 07/18/19 07/18/19 22:59 06:59 14:59 Intake Total 550 500 360 Output Total 500 400 Balance 50 500 -40 Lab Results - Last 24 hrs: Laboratory Results - last 24 hr 07/17/19 07/17/19 07/17/19 Range/Units 17:00 17:05 17:05 WBC 12.7 H (4.0-10.2) K/uL RBC 4.36 (3.77-5.09) M/uL Hgb 13.0 (11.7-15.5) g/dL Hct 39.8 (34.0-46.0) % MCV 91.3 (84.0-98.0) fL MCH 29.8 (28.2-33.3) pg MCHC 32.7 (31.7-36.0) g/dL RDW 13.0 (11.2-14.1) % Plt Count 120 L (150-350) K/uL Neut % (Auto) 94.5 H (45.0-80.0) % Lymph % (Auto) 3.1 L (10.0-50.0) % Stone % (Auto) 1.6 L (2.0-14.0) % Eos % (Auto) 0.5 (0.0-5.0) % Baso % (Auto) 0.3 (0.0-2.0) % Neut # (Auto) 12.02 H (1.40-7.00) K/uL Lymph # (Auto) 0.40 L (0.50-3.50) K/uL Stone # (Auto) 0.20 (0.00-1.00) K/uL Eos # (Auto) 0.06 (0.00-0.50) K/uL Baso # (Auto) 0.04 (0.00-0.20) K/uL Sodium 138 (136-145) mmol/L Potassium 3.8 (3.5-5.1) mmol/L Chloride 101 (98-107) mmol/L Carbon Dioxide 30.8 (21.0-32.0) mmol/L BUN 19 H (7-18) mg/dL Creatinine 1.00 (0.51-1.17) mg/dL Est Cr Clr Drug Dosing TNP Estimated GFR (MDRD) 53 mL/min Glucose 142 H (74-106) mg/dL Calcium 8.7 (8.5-10.1) mg/dL Total Bilirubin 0.7 (0.2-1.0) mg/dL AST 22 (15-37) U/L ALT 19 (12-78) U/L Alkaline Phosphatase 96 (46-116) IU/L Total Protein 7.1 (6.4-8.2) g/dL Albumin 3.5 (3.4-5.0) g/dL Specimen Type Urincc Urine Color Yellow Urine Appearance Clear Urine pH 7.5 (5.0-9.0) Ur Specific [place] 1.020 (1.005-1.030) Urine Protein Negative (NEGATIVE) mg/dL Urine Glucose (UA) Negative (NEGATIVE) mg/dL Urine Ketones Negative (NEGATIVE) mg/dL Urine Occult Blood Large H (NEGATIVE) Urine Nitrite Negative (NEGATIVE) Urine Bilirubin Negative (NEGATIVE) Urine Urobilinogen 0.2 (0.2-1.0) E.U./dL Ur Leukocyte Esterase Negative (NEGATIVE) Urine RBC 10-20 H /HPF Urine WBC 0-5 /HPF Ur Epithelial Cells Few /LPF Urine Bacteria Few (NONE TO FEW) /HPF Med Orders - Current: Current Medications Acetaminophen (Tylenol) 650 mg PO Q4H PRN PRN Reason: Pain (Mild 1-3)/fever Last Admin: 07/18/19 08:07 Dose: 650 mg Ketorolac Tromethamine (Toradol) 15 mg IVPUSH Q6H PRN PRN Reason: Pain Stop: 07/22/19 19:33 Ondansetron HCl (Zofran) 4 mg IVPUSH Q6H PRN PRN Reason: Nausea/Vomiting Oxycodone HCl (Oxycodone) 5 mg PO Q6H PRN PRN Reason: Pain (moderate 4-6) Sodium Chloride (Saline Flush) 10 ml FLUSH ASDIRECTED PRN PRN Reason: Keep Vein Open Tamsulosin HCl (Flomax) 0.4 mg PO BIDPC [facility] Last Admin: 07/18/19 07:37 Dose: 0.4 mg Discontinued Medications Sodium Chloride (Normal Saline) 250 mls @ 500 mls/hr IV ONETIME ONE Stop: 07/17/19 20:29 Last Admin: 07/17/19 20:38 Dose: 500 mls/hr Sodium Chloride (Normal Saline) 500 mls @ 100 mls/hr IV ONETIME ONE Stop: 07/18/19 02:59 Last Admin: 07/17/19 21:13 Dose: 100 mls/hr Influenza Virus Vaccine (Pharmacy To Dose - Influenza Vaccine) 1 each IM ONETIME ONE Stop: 07/18/19 08:01 Influenza Virus Vaccine (Fluzone High-Dose Syringe) 180 mcg IM .ONCE ONE Stop: 07/18/19 11:01 Ketorolac Tromethamine (Toradol) 10 mg PO ONETIME ONE Stop: 07/17/19 18:29 Last Admin: 07/17/19 20:37 Dose: 10 mg Ondansetron HCl (Zofran Odt) 4 mg PO ONETIME ONE Stop: 07/17/19 18:29 Last Admin: 07/17/19 20:37 Dose: 4 mg Tamsulosin HCl (Flomax) 0.4 mg PO ONETIME ONE Stop: 07/17/19 19:00 Last Admin: 07/17/19 20:37 Dose: 0.4 mg - Exam General: Reports: Alert, Oriented, Cooperative, No Acute Distress HEENT: Reports: Pupils Equal, Pupils Reactive, EOMI, Mucous Membr. Moist/[place] Neck: Reports: Supple Lungs: Reports: Clear to Auscultation, Normal Respiratory Effort Cardiovascular: Reports: Regular Rate, Regular Rhythm GI/Abdominal Exam: Soft, No Distention, Other (mild diffuse discomfort with palpation/patient says it is at its usual baseline) (Female) Exam: Deferred Rectal (Female) Exam: Deferred Back Exam: Denies: CVA Tenderness (L), CVA Tenderness (R), Muscle Spasm, Paraspinal Tenderness, Vertebral Tenderness Extremities: Non-Tender, Normal Capillary Refill Skin: Reports: Warm, Dry Neurological: Reports: No New Focal Deficit Psy/Mental Status: Reports: Alert, Normal Affect, Normal Mood
[2019-07-18 11:48] VITALS: BP 131/59; PULSE 81
== END 2019-07-18 13:00 | disposition home or self-care (01) ==
LOC: LL.ED 16:53 → UNDOADMOB 19:00 → LL.MS 19:00
PROVIDERS: ADMIT Emergency Medicine; ATTEND Emergency Medicine
DX: N20.0 Calculus of kidney (principal); I25.10 Atherosclerotic heart disease of native coronary artery without angina pectoris; M15.0 Primary generalized (osteo)arthritis; F41.8 Other specified anxiety disorders; J44.1 Chronic obstructive pulmonary disease with (acute) exacerbation; I11.0 Hypertensive heart disease with heart failure; I50.9 Heart failure, unspecified; K58.9 Irritable bowel syndrome, unspecified; J44.9 Chronic obstructive pulmonary disease, unspecified; M81.0 Age-related osteoporosis without current pathological fracture; Z79.899 Other long term (current) drug therapy; Z79.82 Long term (current) use of aspirin; Z88.1 Allergy status to other antibiotic agents; Z88.2 Allergy status to sulfonamides
CPT/HCPCS: 36415; 74176; 80053; 81001; 82360; 85025; 90662; 96360; 96361; 99285-25; A9270-GY; G0378; J7040; J7050

== ENCOUNTER 2020-12-06 20:10 | Emergency (ER) | payer MEDICARE, BC ==
[2020-12-06] MEDS ORDERED: Sodium Chloride 0.9% 10 ML Syringe FLUSH PRN (20:15)
--- NOTE | 2020-12-06 20:15 | EDM.PDOC ---
ED HPI GENERAL MEDICAL PROBLEM - General Chief Complaint: General Stated Complaint: HTN Time Seen by Provider: 12/06/20 20:10 Source of Information: Reports: Patient, Old Records ([facility] chart/EMR) History Limitations: Reports: No Limitations - History of Present Illness INITIAL COMMENTS - FREE TEXT/NARRATIVE: Patient was brought to the emergency room via private automobile by her for evaluation of elevated blood pressures during the last 1-2 weeks with blood pressure taken by a neighbor, who is a nurse, earlier this evening with blood pressure of 205/102 and repeat blood pressure of 189/97 shortly prior to arrival. Note that the patient is occasionally noncompliant with her medications and also has been taking her Lasix only on a daily rather than previous twice daily basis. No history of recent visual changes, diplopia, change in mental status, or other change in neurological status, however note history of slowly improving chronic headaches after her second Moderna COVID-19 immunization about 1 month ago. The patient denies any chest pain/pressure, heart flutter, dizziness, orthostasis, orthopnea, diaphoresis, paresthesias, recent decreased exercise tolerance, or any other anginal-type symptoms. No recent history of abdominal pain, heartburn, nausea, diarrhea, melena, gross hematochezia, or any food intolerance, including fatty foods, etc.. She denies any gross hematuria, colic, or other UTI symptoms. The patient also denies any recent fever, cough, wheezing, dyspnea, etc.. She has felt her heart pounding in her left neck region during the last week secondary to her hypertension. She denies any specific pain or discomfort, however. Onset: Gradual, Other (As above) Duration: Other (No pain) Severity: Moderate (Hypertension) Improves with: Reports: None Worsens with: Reports: None Context: Reports: Other (As above). Denies: Sick Contact, Trauma Associated Symptoms: Reports: Headaches. Denies: Confusion, Chest Pain, Cough, Diaphoresis, Fever/Chills, Loss of Appetite, Nausea/Vomiting, Seizure, Shortness of Breath, Syncope, Weakness Treatments LICENSED MENTAL HEALTH COUNSELOR: Reports: Other (see below) (None) - Related Data Allergies Allergy/AdvReac Type Severity Reaction Status Date / Time ciprofloxacin [From Cipro] Allergy Cannot Verified 12/06/20 20:21 Remember ciprofloxacin HCl Allergy Cannot Verified 12/06/20 20:21 [From Cipro] Remember nitrofurantoin Allergy Cannot Verified 12/06/20 20:21 [From Macrobid] Remember nitrofurantoin Allergy Cannot Verified 12/06/20 20:21 macrocrystalline Remember [From Macrobid] Sulfa (Sulfonamide Allergy Cannot Verified 12/06/20 20:21 Antibiotics) Remember Home Meds: Home Meds Citalopram [Celexa] 10 mg PO QAM 04/18/15 [History] LORazepam 0.5 mg PO BEDTIME PRN 04/18/15 [History] Metoprolol Succinate [Toprol XL] 50 mg PO QAM 04/18/15 [History] Triamcinolone Acetonide [Triamcinolone Acetonide 0.1% Crm] 15 gm TOP BID PRN 04/18/15 [History] Losartan Potassium 100 mg PO QAM 10/04/15 [History] Cetirizine [ZyrTEC] 10 mg PO DAILY 02/13/16 [History] Naproxen Sodium [Aleve] 220 mg PO DAILY 02/22/18 [History] guaiFENesin/Dextromethorphan [Mucinex DM ER 1,200-60 MG] 1 each PO DAILY 07/17/19 [History] Aspirin [Halfprin] 81 mg PO DAILY 12/06/20 [History] Cholecalciferol (Vitamin D3) [Vitamin D3] 1,000 unit PO DAILY 12/06/20 [History] Cyanocobalamin (Vitamin B-12) [Vitamin B-12] 1,000 mcg PO DAILY 12/06/20 [History] Furosemide [Lasix] 20 mg PO BID 12/06/20 [History] Isosorbide Mononitrate [Imdur] 30 mg PO BEDTIME #30 tab.er 12/06/20 [Rx] Non-Formulary Medication [NF Drug] 2 applic PO DAILY 12/06/20 [History] Potassium Chloride 20 meq PO DAILY #10 tablet.er 12/06/20 [Rx] Past Medical History HEENT History: Reports: Allergic Rhinitis, Cataract, Impaired Vision, Sinusitis, Other (See Below). Denies: Glaucoma, Hard of Hearing, Macular Degeneration, Otitis Media, Retinal Detachment Other HEENT History: Glasses, bilateral cataract surgery as below Cardiovascular History: Reports: Afib, Arrhythmia, CAD, Cardiomyopathy, Heart Failure, Hypertension, [place], PTCA, Stents, Syncope, Other (See Below). Denies: Aneurysm, Blood Clots/VTE/DVT, Heart Murmur, High Cholesterol Other Cardiovascular History: First-degree AV block. History of [place] in 2007 which did require one stent as below. Cardiac ablation for atrial fibrillation at the [facility] on 02/05/16, cardiomegaly, pectus excavatum, Respiratory History: Reports: Bronchitis, Recurrent, COPD, Intubation, Previous, Pneumonia, Recurrent, Pulmonary Fibrosis, Other (See Below). Denies: Asthma, Intubation, Difficult, PE, Pneumothorax, Sleep Apnea, TB Other Respiratory History: Benign bilateral pulmonary nodules. Gastrointestinal History: Reports: Cholelithiasis, Colon Polyp, Diverticulosis, Other (See Below). Denies: Celiac Disease, Fatty Liver, Fecal Incontinence, Gastritis, GERD, Hepatitis, Hiatal Hernia, Inflammatory Bowel Disease, Irritable Bowel Syndrome, Jaundice, Pancreatitis, PUD Other Gastrointestinal History: Colonic polyps of unknown type. Diffuse diverticulosismoderate. Genitourinary History: Reports: Hydronephrosis, Renal Calculus, UTI, Recurrent, Other (See Below). Denies: Acute Renal Failure, BPH, Chronic Renal Insuffiency, Retention, Urinary, STD, Urinary Incontinence Other Genitourinary History: Right-sided pyelonephritis with hydronephrosis secondary to 4mm distal urolithiasis with spontaneous passage on 07/17/2019. Chronic previous nonsymptomatic incidental right-sided urolithiasis and benign bilateral renal cysts by CT scan. BIOMEDICAL EQUIPMENT TECHNICIAN History: Reports: Fibroids, : 5 Para: 5 LMP (Approximate): Other (See Below) Other BIOMEDICAL EQUIPMENT TECHNICIAN History: Menopause at age 48. Full term without complications during pregnancies or deliveries Musculoskeletal History: Reports: Arthritis, Back Pain, Chronic, Neck Pain, Chronic, Osteoarthritis, Osteoporosis, Other (See Below). Denies: Fracture, Gout, RA, SLE Other Musculoskeletal History: Scoliosis Neurological History: Reports: None. Denies: Alzheimers Disease, Cerebral Aneurysms, Concussion, CVA, Headaches, Chronic, Head Trauma, Migraines, MS, Neuropathy, Peripheral, Parkinson's, Seizure, TIA, Vertigo Psychiatric History: Reports: Anxiety, Depression. Denies: Abuse, Victim of, ADD, ADHD, Addiction, Psych Hospitalization(s), PTSD, Suicide Attempt, Suicidal Ideation Endocrine/Metabolic History: Reports: Hypokalemia, Obesity/BMI 30+, Osteopenia, Osteoporosis, Other (See Below). Denies: Diabetes, Gestational, Diabetes, Type I, Diabetes, Type II, Diabetes Mellitus, Type 3c, Hypothyroidism, IDDM Other Endocrine/Metabolic History: Hyponatremia. Hypoalbuminemia. Hematologic History: Reports: None. Denies: Anemia, Blood Transfusion(s) Immunologic History: Reports: None. Denies: AIDS, HIV, SLE Oncologic (Cancer) History: Reports: Malignant Melanoma, Other (See Below). Denies: Basal Cell Carcinoma, Breast, Cervix, Colon, Hodgkin's Lymphoma, Leukemia, Lymphoma, Non-Hodgkin's Lymphoma, Ovarian, Squamous Cell Carcinoma, Uterine Other Oncologic History: melanoma-left face in about 2002. Dermatologic History: Reports: Melanoma, Other (See Below). Denies: Eczema, Psoriasis Other Dermatologic History: Melanoma as above - Infectious Disease History Infectious Disease History: Reports: Measles. Denies: C-Difficile, Chicken Pox, Meningitis, Mononucleosis, MRSA, Mumps, Novel Coronavirus (Patient did receive her second dose of COVID-19 Moderna vaccine in September 2020.), Pertussis (Whooping Cough), Rheumatic Fever, Rubella, Scarlet Fever, Shingles, TB, VRE - Past Surgical History Head Surgeries/Procedures: Reports: None HEENT Surgical History: Reports: Cataract Surgery, Other (See Below). Denies: Adenoidectomy, Eye Surgery, Laser Surgery, LASIK, Myringotomy w Tube(s), Naso- Sinus Surgery, Oral Surgery, Tonsillectomy Other HEENT Surgeries/Procedures: Bilateral cataract surgery in about 2014. Cardiovascular Surgical History: Reports: Cardiac Ablation, Coronary Artery Stent, Percutaneous Transluminal Angioplasty, Other (See Below). Denies: Varicose Other Cardiovascular Surgeries/Procedures: Cardiac ablation on 02/05/16. PTCA/stent 1 in 2006 which patient denies at this time? Respiratory Surgical History: Reports: None. Denies: Thoracentesis GI Surgical History: Reports: Cholecystectomy, Colonoscopy, EGD, Polypectomy, Other (See Below). Denies: Appendectomy, Hernia, Abdominal, Hernia, Inguinal, Hernia Repair/Other Other GI Surgeries/Procedures: Laparoscopic Cholecystectomy at about age 58. Colonoscopy and EGD in about 2016 with possible polypectomy from the colon with previous colonoscopy on 02/10/07. Female Surgical History: Reports: None. Denies: Section, D&C, Hysterectomy, Oophorectomy, Salpingo-Oophorectomy, Tubal Ligation Endocrine Surgical History: Reports: None. Denies: Thyroid Biopsy Neurological Surgical History: Reports: None. Denies: C-Spine, Discectomy, Laminectomy, Lumbar Spine, Sacral Spine, Spinal Fusion, Thoracic Spine, Vertebroplasty Musculoskeletal Surgical History: Reports: Joint Replacement, Knee Replacement, ORIF, Other (See Below). Denies: Arthroscopic Procedure, Carpal Tunnel, Ganglion Cyst Other Musculoskeletal Surgeries/Procedures:: Right total knee arthroplasty in about 2010. Right foot digit #1 joint replacement in about 2008. Oncologic Surgical History: Reports: None Dermatological Surgical History: Reports: Other (See Below) Other Dermatological Surgeries/Procedures: Melanoma excision as above. - Past Imaging History Past Imaging History: Reports: Cardiac Echo (01/31/11 with ejection fraction of 63%), Carotid US (Negative on 02/07/11), CAT Scan (Chest 03/01/2018. CTA of the chest on 10/24/2015 and 10/05/2015. Last CT of the abdomen and pelvis on 1 09/17/2018 with multiple previous evaluations.), DEXA Scan (06/04/08), MRI (Pelvis on 04/15/08), PFT (03/27/11), Stress Testing (Low level cardiac stress test on 10/06/06.), Ultrasound (Abdominal ultrasound on 03/18/09. Pelvic ultrasound on 03/24/11.) - History Comment History Comment: hypokalemia and low sodium noted in past Social & Family History - Tobacco Use Tobacco Use Status *Q: Former Tobacco User Tobacco Use Within Last Twelve Months: No Years of Tobacco use: 26 Packs/Tins Daily: 0.2 Packs/Tins Daily Comment: Smoked about 1 pack/week and quit at age 43. Used Tobacco, but Quit: Yes Smoking Cessation Information Provided To Patient: No Second Hand Smoke Exposure: No Second Hand Smoke Education Provided: No - Caffeine Use Caffeine Use: Reports: Coffee (4 cups per day). 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 ED EXAM, GENERAL - Physical Exam Exam: See Below Exam Limited By: No Limitations General Appearance: Alert, WD/WN, No Apparent Distress Eye Exam: Bilateral Eye: EOMI, Normal Fundi, Normal Inspection (Patient is wearing glasses. No vertigo or nystagmus.), PERRL Ears: Normal External Exam, Normal Canal, Hearing Grossly Normal, Normal TMs Nose: Normal Inspection, Normal Mucosa, No Blood Throat/Mouth: Normal Inspection, Normal Lips, Normal Teeth, Normal Gums, Normal Oropharynx, Normal Voice, No Airway Compromise. No: Dysphagia Head: Atraumatic, Normocephalic. No: Facial Swelling, Facial Tenderness, Sinus Tenderness Neck: Supple, Non-Tender, Full Range of Motion, Carotid Bruit (Mild bilateral carotid bruits). No: Lymphadenopathy (L), Lymphadenopathy (R), Thyromegaly Respiratory/Chest: No Respiratory Distress, Lungs Clear, Normal Breath Sounds, No Accessory Muscle Use, Chest Non-Tender. No: Pleural Rub, Retractions Cardiovascular: Normal Peripheral Pulses, Regular Rate, Rhythm, No Gallop, No JVD, No Murmur, No Rub. No: No Edema (Dependent edema as below), Gallop/S3, Gallop/S4, Friction Rub Peripheral Pulses: 2+: Radial (L), Radial (R), Dorsalis Pedis (L), Dorsalis Pedis (R) GI/Abdominal: Normal Bowel Sounds, Soft, Non-Tender, No Organomegaly, No Distention, No Abnormal Bruit, No Mass, Other (Obese). No: Guarding (Female) Exam: Deferred Rectal (Female) Exam: Deferred Back Exam: Full Range of Motion, Other (Mild scoliosis). No: CVA Tenderness (L), CVA Tenderness (R), Muscle Spasm, Paraspinal Tenderness, Vertebral [place] Extremities: Normal Range of Motion, Non-Tender, Normal Capillary Refill, Pedal Edema (Trace+ bilateral pedal/pretibial edema). No: Link's Sign Neurological: Alert, Oriented, CN II-XII Intact, Normal Cognition, Normal Gait, Normal Reflexes (Negative Babinski's), No Motor/Sensory Deficits Psychiatric: Normal Affect, Normal Mood Skin Exam: Warm, Dry, Intact, Normal Color, No Rash. No: Diaphoretic, Ecchymosis, Wound/Incision Lymphatic: No Adenopathy #1 Interpretation EKG Date: 12/06/20 Time: 20:52 Rhythm: NSR Rate (Beats/Min): 69 [place]: Normal (Left) P-Wave: Enlarged (Mild diffuse biphasic P waves with extreme poor R wave progression in the anterior leads) QRS: Normal (0.08 seconds) ST-T: Normal QT: Normal WA/PQ Interval: 0.21 seconds representing a stable first-degree AV block Comparison: No Change (Last EKG on 12/07/2018.) EKG Interpretation Comments: 1. No acute ischemic changes 2. First-degree AV block 3. Left atrial enlargement Course - Vital Signs Last Recorded V/S: Last Vital Signs Temp 36.6 C 12/06/20 20:17 Pulse 66 12/06/20 20:17 Resp 15 12/06/20 20:17 BP 175/80 H 12/06/20 21:57 Pulse Ox 97 12/06/20 20:17 Vital Signs - 24 hr 12/06/20 12/06/20 12/06/20 20:16 20:17 20:19 Temperature [ 36.6 C Temporal] Pulse, 76 66 Peripheral [ Right Pulse Oximetry] Respiratory 18 15 Rate Blood Pressure 198/100 H Blood Pressure 157/82 H 198/100 H [Right Upper Arm] O2 Sat by Pulse 97 97 Oximetry 12/06/20 21:57 Temperature [ Temporal] Pulse, Peripheral [ Right Pulse Oximetry] Respiratory Rate Blood Pressure 175/80 H Blood Pressure [Right Upper Arm] O2 Sat by Pulse Oximetry - Orders/Labs/Meds Orders: Active Orders 24 hr Category Date Time Status Cardiac Monitoring [RC] . DIRECTED Care 12/06/20 20:16 Active EKG Documentation Completion [RC] ASDIRECTED Care 12/06/20 20:16 Active Oxygen Therapy, ED [RC] PRN Care 12/06/20 20:16 Active Peripheral IV Care [RC] . DIRECTED Care 12/06/20 20:16 Active Pulse Oximetry [RC] CONTINUOUS Care 12/06/20 20:16 Active Up With Assistance [RC] PFP Care 12/06/20 20:16 Active Vital Signs [RC] PFP Care 12/06/20 20:16 Active Nothing per Oral Now Diet [DIET] Diet 12/06/20 Breakfast Active Chest 1V Frontal [CR] Stat Exams 12/06/20 20:16 Taken Nitroglycerin [Nitrostat] Med 12/06/20 20:17 Stat 0.4 mg SL ONETIME STA Sodium Chloride 0.9% [Saline Flush] Med 12/06/20 20:15 Active 10 ml FLUSH ASDIRECTED PRN Obtain Past Medical Record [OM.PC] Urgent Oth 12/06/20 20:16 Active Peripheral IV Insertion Adult [OM.PC] Stat Oth 12/06/20 20:16 Ordered Resuscitation Status Stat Resus Stat 12/06/20 20:15 Ordered Medication Orders Nitroglycerin (Nitroglycerin 0.4 Mg Tab.Sl) 0.4 mg SL ONETIME STA Stop: 12/07/20 20:18 Last Admin: 12/06/20 20:19 Dose: 0.4 mg Documented by: NANCY Sodium Chloride (Sodium Chloride 0.9% 10 Ml Syringe) 10 ml FLUSH ASDIRECTED PRN PRN Reason: Keep Vein Open Labs: Laboratory Tests 12/06/20 12/06/20 12/06/20 Range/Units 20:15 20:15 20:15 WBC 7.4 (4.0-10.2) K/uL RBC 4.85 (3.77-5.09) M/uL Hgb 14.4 (11.7-15.5) g/dL Hct 44.1 (34.0-46.0) % MCV 90.9 (84.0-98.0) fL MCH 29.7 (28.2-33.3) pg MCHC 32.7 (31.7-36.0) g/dL RDW 13.2 (11.2-14.1) % Plt Count 170 (150-350) K/uL Neut % (Auto) 53.3 (45.0-80.0) % Lymph % (Auto) 31.9 (10.0-50.0) % [place] % (Auto) 8.2 (2.0-14.0) % Eos % (Auto) 6.2 H (0.0-5.0) % Baso % (Auto) 0.4 (0.0-2.0) % Neut # (Auto) 3.97 (1.40-7.00) K/uL Lymph # (Auto) 2.37 (0.50-3.50) K/uL [place] # (Auto) 0.61 (0.00-1.00) K/uL Eos # (Auto) 0.46 (0.00-0.50) K/uL Baso # (Auto) 0.03 (0.00-0.20) K/uL PT 10.1 (9.5-12.0) SEC INR 1.0 APTT 23.7 L (24.5-32.8) SEC D-Dimer, Quantitative 571 H (0-400) ng/mL Sodium (136-145) mmol/L Potassium (3.5-5.1) mmol/L Chloride (98-107) mmol/L Carbon Dioxide (21.0-32.0) mmol/L BUN (7-18) mg/dL Creatinine (0.51-1.17) mg/dL Est Cr Clr Drug Dosing Estimated GFR (MDRD) mL/min Glucose (70-99) mg/dL Lactic Acid (0.4-2.0) mmol/L Uric Acid (2.6-7.2) mg/dL Calcium (8.5-10.1) mg/dL Magnesium (1.8-2.4) mg/dL Total Bilirubin (0.2-1.0) mg/dL AST (15-37) U/L ALT (12-78) U/L Alkaline Phosphatase (46-116) IU/L Creatine Kinase (26-308) U/L Creatine Kinase Index (0.0-2.5) % CK-MB (CK-2) (0.00-3.60) ng/mL Troponin I (0.000-0.056) ng/mL NT-Pro-B Natriuret Pep (0-125) pg/mL Total Protein (6.4-8.2) g/dL Albumin (3.4-5.0) g/dL TSH, Ultra Sensitive (0.358-3.740) mIU/mL 12/06/20 12/06/20 Range/Units 20:15 20:15 WBC (4.0-10.2) K/uL RBC (3.77-5.09) M/uL Hgb (11.7-15.5) g/dL Hct (34.0-46.0) % MCV (84.0-98.0) fL MCH (28.2-33.3) pg MCHC (31.7-36.0) g/dL RDW (11.2-14.1) % Plt Count (150-350) K/uL Neut % (Auto) (45.0-80.0) % Lymph % (Auto) (10.0-50.0) % [place] % (Auto) (2.0-14.0) % Eos % (Auto) (0.0-5.0) % Baso % (Auto) (0.0-2.0) % Neut # (Auto) (1.40-7.00) K/uL Lymph # (Auto) (0.50-3.50) K/uL [place] # (Auto) (0.00-1.00) K/uL Eos # (Auto) (0.00-0.50) K/uL Baso # (Auto) (0.00-0.20) K/uL PT (9.5-12.0) SEC INR APTT (24.5-32.8) SEC D-Dimer, Quantitative (0-400) ng/mL Sodium 143 (136-145) mmol/L Potassium 3.7 (3.5-5.1) mmol/L Chloride 105 (98-107) mmol/L Carbon Dioxide 34.4 H (21.0-32.0) mmol/L BUN 16 (7-18) mg/dL Creatinine 0.97 (0.51-1.17) mg/dL Est Cr Clr Drug Dosing TNP Estimated GFR (MDRD) 55 mL/min Glucose 112 H (70-99) mg/dL Lactic Acid 0.7 (0.4-2.0) mmol/L Uric Acid 3.7 (2.6-7.2) mg/dL Calcium 8.8 (8.5-10.1) mg/dL Magnesium 2.0 (1.8-2.4) mg/dL Total Bilirubin 0.4 (0.2-1.0) mg/dL AST 17 (15-37) U/L ALT 19 (12-78) U/L Alkaline Phosphatase 103 (46-116) IU/L Creatine Kinase 69 (26-308) U/L Creatine Kinase Index 1.2 (0.0-2.5) % CK-MB (CK-2) 0.80 (0.00-3.60) ng/mL Troponin I 0.000 (0.000-0.056) ng/mL NT-Pro-B Natriuret Pep 933 H (0-125) pg/mL Total Protein 7.3 (6.4-8.2) g/dL Albumin 3.7 (3.4-5.0) g/dL TSH, Ultra Sensitive 2.015 (0.358-3.740) mIU/mL Meds: Medications Generic Name Dose Route Start Last Admin Trade Name Freq PRN Reason Stop Dose Admin Nitroglycerin 0.4 mg 12/06/20 20:17 12/06/20 20:19 Nitroglycerin 0.4 Mg Tab.Sl SL 12/07/20 20:18 0.4 mg ONETIME STA Administration Sodium Chloride 10 ml 12/06/20 20:15 Sodium Chloride 0.9% 10 Ml Syringe FLUSH ASDIRECTED PRN Keep Vein Open Discontinued Medications Generic Name Dose Route Start Last Admin Trade Name Freq PRN Reason Stop Dose Admin Isosorbide Mononitrate 30 mg 12/07/20 21:45 Isosorbide Mononitrate 30 Mg Tab.Er PO 12/07/20 21:46 ONETIME ONE Isosorbide Mononitrate 30 mg 12/06/20 21:45 12/06/20 21:57 Isosorbide Mononitrate 30 Mg Tab.Er PO 12/06/20 21:46 30 mg ONETIME ONE Administration - Radiology Interpretation Free Text/Narrative:: spool 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 Chest x-ray, portable, shows severe COPD changes with probable left lower lobe atelectasis. Moderate cardiomegaly and prominence of the proximal aortic arch with no evidence of aneurysm. Mild centralized CHF and/or pulmonary hypertension. No pneumothorax, pulmonary infiltrates, etc. - Re-Assessments/Exams Free Text/Narrative Re-Assessment/Exam: spool hauler showed normal sinus rhythm with average heart rate in the 60s to 70s with no ectopy or arrhythmia Chest x-ray, portable, shows severe COPD with left lower lobe atelectasis but no evidence of pulmonary infiltrates or pneumothorax. Moderate cardiomegaly and prominence of the proximal aortic arch with no evidence of aneurysm. Mild centralized CHF and/or pulmonary hypertension. Departure - Departure Time of Disposition: 22:20 Disposition: Home, Self-Care 01 Condition: Good Clinical Impression: Mixed anxiety depressive disorder, D-dimer, elevated, First degree AV block COPD (chronic obstructive pulmonary disease) Qualifiers: COPD type: COPD with acute exacerbation Qualified Code(s): J44.1 - Chronic obstructive pulmonary disease with (acute) exacerbation CHF (congestive heart failure) Qualifiers: Heart failure type: unspecified Heart failure chronicity: unspecified Qualified Code(s): I50.9 - Heart failure, unspecified Coronary artery disease Qualifiers: Coronary Disease-Associated Artery/Lesion type: [place] artery [place] vs. transplanted heart: [place] heart Associated angina: without angina Qualified Code(s): I25.10 - Atherosclerotic heart disease of [place] coronary artery without angina pectoris Osteoarthritis Qualifiers: Osteoarthritis location: multiple joints Osteoarthritis type: primary Qualified Code(s): M89.49 - Other hypertrophic osteoarthropathy, multiple sites Hypertension Qualifiers: Hypertension type: essential hypertension Qualified Code(s): I10 - Essential (primary) hypertension - Discharge Information *PRESCRIPTION DRUG MONITORING PROGRAM REVIEWED*: Not Applicable *COPY OF PRESCRIPTION DRUG MONITORING REPORT IN PATIENT MAYELA: Not Applicable Prescriptions: Isosorbide Mononitrate [Imdur] 30 mg PO BEDTIME #30 tab.er Potassium Chloride 20 meq PO DAILY #10 tablet.er Instructions: Hypertension, Adult, [id number], Nitroglycerin sublingual tablets, Isosorbide Mononitrate extended-release tablets, Heart Failure, Diagnosis, [id number] Referrals: PCP,None [Primary Care Provider] - Forms: ED Department Discharge Additional Instructions: 1. Follow-up with your new regular provider, HESHAM Womack from [facility] in [place], in 1 week for reevaluation and recommended repeat CBC, basic met abolic panel, troponin I, D-dimer, and BNP. 2. The hospital will call you early next week to schedule you for a venous Doppler study of your legs bilaterally with results to be discussed with your re gular provider as above 3. Bring your blood pressure record with you to all doctor appointments with recommended blood pressure checks before your morning medications and before your evening medications. 4. Strict compliance with your medications as discussed with Lasix/furosemide to be taken twice a day every day. 5. Immediately after this visit verify that your cellular telephone's voicemail has been activated and is empty. Also verify that your home telephone's answering machine is operating properly and has space to receive messages. Note that it is sometimes necessary for us to be able to contact you at a later date to discuss your medical care. 6. Please remember that we are ALWAYS here for you and want to answer any questions you may have. Feel free to call the hospital any time and we call you back KERRIE. Sepsis Event Note (ED) - Focused Exam Vital Signs: Vital Signs Temp Pulse Resp BP BP Pulse Ox 12/06/20 21:57 175/80 H 12/06/20 20:19 198/100 H 12/06/20 20:17 36.6 C 66 15 198/100 H 97 12/06/20 20:16 76 18 157/82 H 97 - Problem List & Annotations (1) Hypertension SNOMED Code(s): 30189206 Code(s): I10 - ESSENTIAL (PRIMARY) HYPERTENSION Status: Chronic Priority: High Current Visit: Yes Annotation/Comment:: Blood pressures have been under poor control recently as above. A sublingual nitroglycerin tablet was given for blood pressure control with excellent results. Imdur given prior to patient's discharge with additional 2 tablets given for the weekend and a 30-day prescription emailed to her pharmacy. This will serve both as blood pressure control and as cardiac prophylaxis. Medication compliance was strongly encouraged. Patient was counseled on taking twice daily Accu-Cheks. Qualifiers: Hypertension type: essential hypertension Qualified Code(s): I10 - Essential (primary) hypertension (2) CHF (congestive heart failure) SNOMED Code(s): 37648655 Code(s): I50.9 - HEART FAILURE, UNSPECIFIED Status: Chronic Priority: High Current Visit: Yes Annotation/Comment:: Patient has been noncompliant with her Lasix and only taking it daily rather than twice daily with patient mostly using an occasional p.m. dose with increased dependent edema. Medication compliance was strongly encouraged with her Lasix to be taken twice daily on a regular basis. Additional potassium chloride given today with caution secondary to her current angiotensin II receptor sobeida therapy. Close follow-up by her regular provider as per discharge instructions. Consider repeat echocardiogram depending on her clinical course. Qualifiers: Heart failure type: unspecified Heart failure chronicity: unspecified Qualified Code(s): I50.9 - Heart failure, unspecified (3) D-dimer, elevated SNOMED Code(s): 917620333 Code(s): R79.89 - OTHER SPECIFIED ABNORMAL FINDINGS OF BLOOD CHEMISTRY Status: Acute Priority: High Current Visit: Yes Onset Date: 12/06/20 Annotation/Comment:: No clinical evidence of DVT or PE with previous negative CTA of the chest. Venous Doppler studies of the lower extremities will be conducted in this facility early next week with results to be discussed with her new regular provider as above. Repeat CT of the chest depending on her clinical course with excellent O2 saturations during her emergency room care. (4) Coronary artery disease SNOMED Code(s): 13602732 Code(s): I25.10 - ATHSCL HEART DISEASE OF [place] CORONARY ARTERY W/O ANG PCTRS Status: Chronic Priority: Medium Current Visit: Yes Annotation/Comment:: No chest pain or anginal type symptoms. Qualifiers: Coronary Disease-Associated Artery/Lesion type: [place] artery [place] vs. transplanted heart: [place] heart Associated angina: without angina Qualified Code(s): I25.10 - Atherosclerotic heart disease of [place] coronary artery without angina pectoris (5) Osteoarthritis SNOMED Code(s): 605486928 Code(s): M19.90 - UNSPECIFIED OSTEOARTHRITIS, UNSPECIFIED SITE Status: Chronic Priority: Medium Current Visit: Yes Annotation/Comment:: Stable by history Qualifiers: Osteoarthritis location: multiple joints Osteoarthritis type: primary Qualified Code(s): M89.49 - Other hypertrophic osteoarthropathy, multiple sites (6) Mixed anxiety depressive disorder SNOMED Code(s): 391694016 Code(s): F41.8 - OTHER SPECIFIED ANXIETY DISORDERS Status: Chronic Priority: Low Current Visit: Yes Annotation/Comment:: Stable by history and today's exam. (7) COPD (chronic obstructive pulmonary disease) SNOMED Code(s): 96075601 Code(s): J44.9 - CHRONIC OBSTRUCTIVE PULMONARY DISEASE, UNSPECIFIED Status: Chronic Priority: Medium Current Visit: Yes Annotation/Comment:: No recent fever or bronchitic type symptoms. Qualifiers: COPD type: COPD with acute exacerbation Qualified Code(s): J44.1 - Chronic obstructive pulmonary disease with (acute) exacerbation (8) First degree AV block SNOMED Code(s): 929007894 Code(s): I44.0 - ATRIOVENTRICULAR BLOCK, FIRST DEGREE Status: Chronic Priority: Medium Current Visit: Yes Onset Date: 12/17/18 Annotation/Comment:: Stable during today's exam. - Problem List Review Problem List Initiated/Reviewed/Updated: Yes - My Orders Last 24 Hours: My Active Orders 12/06/20 Breakfast Nothing per Oral Now Diet [DIET] 12/06/20 20:15 Sodium Chloride 0.9% [Saline Flush] 10 ml FLUSH ASDIRECTED PRN Resuscitation Status Stat 12/06/20 20:16 Cardiac Monitoring [RC] . DIRECTED EKG Documentation Completion [RC] ASDIRECTED Oxygen Therapy, ED [RC] PRN Peripheral IV Care [RC] . DIRECTED Pulse Oximetry [RC] CONTINUOUS Up With Assistance [RC] PFP Vital Signs [RC] PFP Chest 1V Frontal [CR] Stat Obtain Past Medical Record [OM.PC] Urgent Peripheral IV Insertion Adult [OM.PC] Stat 12/06/20 20:17 Nitroglycerin [Nitrostat] 0.4 mg SL ONETIME STA - Assessment/Plan Last 24 Hours: My Active Orders 12/06/20 Breakfast Nothing per Oral Now Diet [DIET] 12/06/20 20:15 Sodium Chloride 0.9% [Saline Flush] 10 ml FLUSH ASDIRECTED PRN Resuscitation Status Stat 12/06/20 20:16 Cardiac Monitoring [RC] . DIRECTED EKG Documentation Completion [RC] ASDIRECTED Oxygen Therapy, ED [RC] PRN Peripheral IV Care [RC] . DIRECTED Pulse Oximetry [RC] CONTINUOUS Up With Assistance [RC] PFP Vital Signs [RC] PFP Chest 1V Frontal [CR] Stat Obtain Past Medical Record [OM.PC] Urgent Peripheral IV Insertion Adult [OM.PC] Stat 12/06/20 20:17 Nitroglycerin [Nitrostat] 0.4 mg SL ONETIME STA Assessment:: As above Plan: As above. Extensive precautions were given to the patient and her , who are in agreement with the treatment plan. See Patient Instructions for further treatment and plan.
[2020-12-06] MEDS ORDERED: Nitroglycerin 0.4 MG Tab.SL SL STA (20:17)
[2020-12-06 20:18] VITALS: PULSE 66
[2020-12-06 20:39] LABS: PTT,PARTIAL THROMBOPLSTIN TIME 23.7 SEC (24.5-32.8)
[2020-12-06 20:49] LABS: CHLORIDE,CL 105 mmol/L (98-107); SODIUM,NA 143 mmol/L (136-145)
[2020-12-06] MEDS ORDERED: Isosorbide Mononitrate 30 MG Tab.ER PO ONE (21:45)
[2020-12-06 21:58] VITALS: BP 175/80
[2020-12-07] MEDS ORDERED: Isosorbide Mononitrate 30 MG Tab.ER PO ONE (21:45)
== END 2020-12-06 22:15 | disposition home or self-care (01) ==
LOC: LL.ED 20:10
DX: I11.0 Hypertensive heart disease with heart failure (principal); I50.9 Heart failure, unspecified; J44.1 Chronic obstructive pulmonary disease with (acute) exacerbation; M89.49 Other hypertrophic osteoarthropathy, multiple sites; R60.0 Localized edema; I44.0 Atrioventricular block, first degree; I25.10 Atherosclerotic heart disease of native coronary artery without angina pectoris; I25.2 Old myocardial infarction; R79.89 Other specified abnormal findings of blood chemistry; I48.91 Unspecified atrial fibrillation; F41.8 Other specified anxiety disorders; Z87.891 Personal history of nicotine dependence; Z79.899 Other long term (current) drug therapy; Z79.82 Long term (current) use of aspirin; Z88.1 Allergy status to other antibiotic agents; Z88.2 Allergy status to sulfonamides
CPT/HCPCS: 36415; 71045; 80053; 82550; 82553; 83605; 83735; 83880; 84443; 84484; 84550; 85025; 85379; 85610; 85730; 93005; 93010; 99284; 99284-25; A9270-GY

== ENCOUNTER 2021-07-29 04:11 | Emergency (ER) | payer MEDICARE, BC ==
--- NOTE | 2021-07-29 04:32 | EDM.PDOC ---
ED HPI GENERAL MEDICAL PROBLEM - General Chief Complaint: Respiratory Problem Stated Complaint: cough, shortness of breath Time Seen by Provider: 07/29/21 04:11 Source of Information: Reports: Patient History Limitations: Reports: No Limitations - History of Present Illness INITIAL COMMENTS - FREE TEXT/NARRATIVE: Pt. presents to ER with complaints of 10 days history of cough, productive of yellowish sputum, wheezing, rhonchi, and respirophasic lower lateral rib discomfort. Pt. states that she has a history of COPD and asthma. She states that she symptoms are similar to when she has had acute bronchitis/COPD exacerbation in the past. Denies any significant shortness of breath at rest. She states that when she takes a deep breath it causes her to cough. Pt. denies any fever or chills. No hemoptysis. No substernal chest pain, nausea, vomiting, or diarrhea. No loss of taste or smell. Has had her Moderna vaccination for covid. Denies any ill contacts that she is aware of. She states that she often "gets steroid shots" when she has an exacerbation of COPD but states that she was not able to get to the clinic due to weather today. She states that she was unable to sleep tonight due to cough and subsequently came to ER for evaluation and treatment. Onset Date: 07/18/21 Location: Reports: Chest, Generalized - Related Data Allergies Allergy/AdvReac Type Severity Reaction Status Date / Time ciprofloxacin [From Cipro] Allergy Cannot Verified 07/29/21 04:15 Remember ciprofloxacin HCl Allergy Cannot Verified 07/29/21 04:15 [From Cipro] Remember nitrofurantoin Allergy Cannot Verified 07/29/21 04:15 [From Macrobid] Remember nitrofurantoin Allergy Cannot Verified 07/29/21 04:15 macrocrystalline Remember [From Macrobid] Penicillins Allergy Cannot Verified 07/29/21 04:44 Remember Sulfa (Sulfonamide Allergy Cannot Verified 07/29/21 04:15 Antibiotics) Remember Home Meds: Home Meds Citalopram [Celexa] 10 mg PO QAM 04/18/15 [History] LORazepam 0.5 mg PO BEDTIME PRN 04/18/15 [History] Metoprolol Succinate [Toprol XL] 50 mg PO QAM 04/18/15 [History] Triamcinolone Acetonide [Triamcinolone Acetonide 0.1% Crm] 15 gm TOP BID PRN 04/18/15 [History] Losartan Potassium 100 mg PO QAM 10/04/15 [History] Cetirizine [ZyrTEC] 10 mg PO DAILY 02/13/16 [History] Naproxen Sodium [Aleve] 220 mg PO DAILY 02/22/18 [History] guaiFENesin/Dextromethorphan [Mucinex DM ER 1,200-60 MG] 1 each PO DAILY [History] Aspirin [Halfprin] 81 mg PO DAILY 12/06/20 [History] Cholecalciferol (Vitamin D3) [Vitamin D3] 1,000 unit PO DAILY 12/06/20 [History] Cyanocobalamin (Vitamin B-12) [Vitamin B-12] 1,000 mcg PO DAILY 12/06/20 [History] Furosemide [Lasix] 20 mg PO BID 12/06/20 [History] Isosorbide Mononitrate [Imdur] 30 mg PO BEDTIME #30 tab.er 12/06/20 [Rx] Non-Formulary Medication [NF Drug] 2 applic PO DAILY 12/06/20 [History] Potassium Chloride 20 meq PO DAILY #10 tablet.er 12/06/20 [Rx] Past Medical History HEENT History: Reports: Allergic Rhinitis, Cataract, Impaired Vision, Sinusitis, Other (See Below). Denies: Glaucoma, Hard of Hearing, Macular Degeneration, Otitis Media, Retinal Detachment Other HEENT History: Glasses, bilateral cataract surgery as below Cardiovascular History: Reports: Afib, Arrhythmia, CAD, Cardiomyopathy, Heart Failure, Hypertension, MT, PTCA, Stents, Syncope, Other (See Below). Denies: Aneurysm, Blood Clots/VTE/DVT, Heart Murmur, High Cholesterol Other Cardiovascular History: First-degree AV block. History of MT in 2006 which did require one stent as below. Cardiac ablation for atrial fibrillation at the [facility] on 02/05/16, cardiomegaly, pectus excavatum, Respiratory History: Reports: Bronchitis, Recurrent, COPD, Intubation, Previous, Pneumonia, Recurrent, Pulmonary Fibrosis, Other (See Below). Denies: Asthma, Intubation, Difficult, PE, Pneumothorax, Sleep Apnea, TB Other Respiratory History: Benign bilateral pulmonary nodules. Gastrointestinal History: Reports: Cholelithiasis, Colon Polyp, Diverticulosis, Other (See Below). Denies: Celiac Disease, Fatty Liver, Fecal Incontinence, Gastritis, GERD, Hepatitis, Hiatal Hernia, Inflammatory Bowel Disease, Irritable Bowel Syndrome, Jaundice, Pancreatitis, PUD Other Gastrointestinal History: Colonic polyps of unknown type. Diffuse diverticulosismoderate. Genitourinary History: Reports: Hydronephrosis, Renal Calculus, UTI, Recurrent, Other (See Below). Denies: Acute Renal Failure, BPH, Chronic Renal Insuffiency, Retention, Urinary, STD, Urinary Incontinence Other Genitourinary History: Right-sided pyelonephritis with hydronephrosis secondary to 4mm distal urolithiasis with spontaneous passage on 07/17/2019. Chronic previous nonsymptomatic incidental right-sided urolithiasis and benign bilateral renal cysts by CT scan. [employer] History: Reports: Fibroids, Other [employer] History: Menopause at age 48. Full term without complications during pregnancies or deliveries Musculoskeletal History: Reports: Arthritis, Back Pain, Chronic, Neck Pain, Chronic, Osteoarthritis, Osteoporosis, Other (See Below). Denies: Fracture, Gout, RA, SLE Other Musculoskeletal History: Scoliosis Neurological History: Reports: None. Denies: Alzheimers Disease, Cerebral Aneurysms, Concussion, CVA, Headaches, Chronic, Head Trauma, Migraines, MS, Neuropathy, Peripheral, Parkinson's, Seizure, TIA, Vertigo Psychiatric History: Reports: Anxiety, Depression. Denies: Abuse, Victim of, ADD, ADHD, Addiction, Psych Hospitalization(s), PTSD, Suicide Attempt, Suicidal Ideation Endocrine/Metabolic History: Reports: Hypokalemia, Obesity/BMI 30+, Osteopenia, Osteoporosis, Other (See Below). Denies: Diabetes, Gestational, Diabetes, Type I, Diabetes, Type II, Diabetes Mellitus, Type 3c, Hypothyroidism, IDDM Other Endocrine/Metabolic History: Hyponatremia. Hypoalbuminemia. Hematologic History: Reports: None. Denies: Anemia, Blood Transfusion(s) Immunologic History: Reports: None. Denies: AIDS, HIV, SLE Oncologic (Cancer) History: Reports: Malignant Melanoma, Other (See Below). Denies: Basal Cell Carcinoma, Breast, Cervix, Colon, Hodgkin's Lymphoma, Leukemia, Lymphoma, Non-Hodgkin's Lymphoma, Ovarian, Squamous Cell Carcinoma, Uterine Other Oncologic History: melanoma-left face in about 2002. Dermatologic History: Reports: Melanoma, Other (See Below). Denies: Eczema, Psoriasis Other Dermatologic History: Melanoma as above - Infectious Disease History Infectious Disease History: Reports: Measles. Denies: C-Difficile, Chicken Pox, Meningitis, Mononucleosis, MRSA, Mumps, Novel Coronavirus (Patient did receive her second dose of COVID-19 Moderna vaccine in September 2020.), Pertussis (Whooping Cough), Rheumatic Fever, Rubella, Scarlet Fever, Shingles, TB, VRE - Past Surgical History HEENT Surgical History: Reports: Cataract Surgery, Other (See Below). Denies: Adenoidectomy, Eye Surgery, Laser Surgery, LASIK, Myringotomy w Tube(s), Naso- Sinus Surgery, Oral Surgery, Tonsillectomy Cardiovascular Surgical History: Reports: Cardiac Ablation, Coronary Artery Stent, Percutaneous Transluminal Angioplasty, Other (See Below). Denies: Varicose Respiratory Surgical History: Reports: None. Denies: Thoracentesis GI Surgical History: Reports: Cholecystectomy, Colonoscopy, EGD, Polypectomy, Other (See Below). Denies: Appendectomy, Hernia, Abdominal, Hernia, Inguinal, Hernia Repair/Other Female Surgical History: Reports: None. Denies: Section, D&C, Hysterectomy, Oophorectomy, Salpingo-Oophorectomy, Tubal Ligation Endocrine Surgical History: Reports: None. Denies: Thyroid Biopsy Neurological Surgical History: Reports: None. Denies: C-Spine, Discectomy, Laminectomy, Lumbar Spine, Sacral Spine, Spinal Fusion, Thoracic Spine, Vertebroplasty Musculoskeletal Surgical History: Reports: Joint Replacement, Knee Replacement, ORIF, Other (See Below). Denies: Arthroscopic Procedure, Carpal Tunnel, Ganglion Cyst Other Dermatological Surgeries/Procedures: Melanoma excision as above. - Past Imaging History Past Imaging History: Reports: Cardiac Echo (01/31/11 with ejection fraction of 63%), Carotid US (Negative on 02/07/11), CAT Scan (Chest 03/01/2018. CTA of the chest on 10/24/2015 and 10/05/2015. Last CT of the abdomen and pelvis on 07/17/2019 with multiple previous evaluations.), DEXA Scan (06/04/08), MRI (Pelvis on 04/15/08), PFT (03/27/11), Stress Testing (Low level cardiac stress test on 10/06/06.), Ultrasound (Abdominal ultrasound on 03/18/09. Pelvic ultrasound on 03/24/11.) - History Comment History Comment: hypokalemia and low sodium noted in past Social & Family History - Caffeine Use Caffeine Use: Reports: Coffee - Living Situation & Occupation Living situation: Reports: (1960, 5 children), with Family () Occupation: Employed ([employer]) ED ROS GENERAL - Review of Systems Review Of Systems: Comprehensive ROS is negative, except as noted in HPI. ED EXAM, GENERAL - Physical Exam Exam: See Below Exam Limited By: No Limitations General Appearance: Alert, WD/WN, No Apparent Distress Eye Exam: Bilateral Eye: EOMI Head: Atraumatic, Normocephalic Neck: Normal Inspection, Supple, Non-Tender, Full Range of Motion Respiratory/Chest: Decreased Breath Sounds, Rhonchi, Other (lateral lower ribs are tender, particularly with deep breathing and movement.) Cardiovascular: Normal Peripheral Pulses, Regular Rate, Rhythm, No JVD, No Murmur Peripheral Pulses: 4+: Radial (L) GI/Abdominal: Soft, Non-Tender, No Distention, No Mass (Female) Exam: Deferred Rectal (Female) Exam: Deferred Extremities: Normal Inspection, Normal Range of Motion, Non-Tender, No Pedal Edema, Normal Capillary Refill Neurological: Alert, Oriented, CN II-XII Intact, Normal Cognition, Normal Reflexes, No Motor/Sensory Deficits Psychiatric: Normal Affect, Normal Mood Skin Exam: Warm, Dry, Intact, Normal Color Course - Orders/Labs/Meds Orders: Active Orders 24 hr Category Date Time Status Chest 2V [CR] Stat Exams 07/29/21 04:20 Taken Meds: Medications Discontinued Medications Generic Name Dose Route Start Last Admin Trade Name Freq PRN Reason Stop Dose Admin Doxycycline Monohydrate 100 mg 07/29/21 04:46 Doxycycline Monohydrate 100 Mg Cap PO 07/29/21 04:47 ONETIME ONE Methylprednisolone Sodium Succinate 125 mg 07/29/21 04:46 Methylprednisolone Sodium Succinate 125 Mg/2 Ml Sdv IM 07/29/21 04:47 ONETIME ONE - Radiology Interpretation Free Text/Narrative:: COPD, mild opacification of lower and R middle lung field Departure - Departure Time of Disposition: 04:54 Disposition: Home, Self-Care 01 Clinical Impression: COPD exacerbation COPD (chronic obstructive pulmonary disease) Qualifiers: COPD type: COPD with acute exacerbation Qualified Code(s): J44.1 - Chronic obst ructive pulmonary disease with (acute) exacerbation - Discharge Information Instructions: Chronic Obstructive Pulmonary Disease Exacerbation, [id number], Doxycycline tablets or capsules, Prednisone tablets, Codeine; Promethazine oral solution, Probiotics Forms: ED Department Discharge Additional Instructions: Doxycycline 100mg 1 twice daily until gone. Make sure to finish entire course of antibiotics. Prednisone 20mg 2 tabs daily for 5 days Phenergan with codeine cough medicine 5ml (1 tsp) every 6 hours as needed for cough Drink plenty of fluids Tylenol as needed for discomfort recheck in clinic in 10-14 days, sooner if not gradually improving - My Orders Last 24 Hours: My Active Orders 07/29/21 04:20 Chest 2V [CR] Stat - Assessment/Plan Last 24 Hours: My Active Orders 07/29/21 04:20 Chest 2V [CR] Stat Plan: Doxycycline 100mg 1 twice daily until gone. Make sure to finish entire course of antibiotics. Prednisone 20mg 2 tabs daily for 5 days Phenergan with codeine cough medicine 5ml (1 tsp) every 6 hours as needed for cough Drink plenty of fluids Tylenol as needed for discomfort recheck in clinic in 10-14 days, sooner if not gradually improving
[2021-07-29] MEDS ORDERED: Doxycycline Monohydrate 100 MG Cap PO ONE (04:46)
[2021-07-29] MEDS ORDERED: methylPREDNISolone Sodium Succinate 125 MG/2 ML SDV IM ONE (04:46)
[2021-07-29 05:52] VITALS: BP 162/76; PULSE 77
== END 2021-07-29 05:10 | disposition home or self-care (01) ==
LOC: LL.ED 04:11
DX: J44.1 Chronic obstructive pulmonary disease with (acute) exacerbation (principal); I25.10 Atherosclerotic heart disease of native coronary artery without angina pectoris; I11.0 Hypertensive heart disease with heart failure; I50.9 Heart failure, unspecified; I25.2 Old myocardial infarction; Z95.5 Presence of coronary angioplasty implant and graft; Z88.2 Allergy status to sulfonamides; Z88.0 Allergy status to penicillin; Z88.1 Allergy status to other antibiotic agents; Z79.82 Long term (current) use of aspirin; Z79.899 Other long term (current) drug therapy
CPT/HCPCS: 71046; 96372; 99283; A9270; J2930

== ENCOUNTER 2024-06-22 08:31 | Day surgery (SDC) | payer MEDICARE ==
[~2024-06-22 08:31] MED LIST: Midazolam 1 MG/ML 2 ML SDV ONE; Propofol 200 MG/20 ML SDV ONE
[2024-06-22] MEDS ORDERED: Sodium Chloride 0.9% 10 ML Syringe FLUSH PRN (09:00)
[2024-06-22] MEDS: Lactated Ringers 1,000 ML IV SCH (09:24)
[2024-06-22 11:01] VITALS: BP 112/55; PULSE 64
== END 2024-06-22 11:41 | disposition home or self-care (01) ==
LOC: LL.SDS 08:31
PROVIDERS: ATTEND Surgery
DX: K57.30 Diverticulosis of large intestine without perforation or abscess without bleeding (principal); K59.00 Constipation, unspecified; K64.4 Residual hemorrhoidal skin tags; I11.0 Hypertensive heart disease with heart failure; I50.9 Heart failure, unspecified; I48.11 Longstanding persistent atrial fibrillation; I25.10 Atherosclerotic heart disease of native coronary artery without angina pectoris; F33.9 Major depressive disorder, recurrent, unspecified; Z79.899 Other long term (current) drug therapy; Z88.2 Allergy status to sulfonamides; Z88.1 Allergy status to other antibiotic agents
CPT/HCPCS: J2250; J2704; J7120